=== PATIENT | female | born 1955 | race Caucasian/White ===

== ENCOUNTER 2021-09-09 12:14 | Inpatient (IN) ==
[2021-09-09 13:21] LABS: Basophils # (auto) 0.01 K/uL (0-0.2); Basophils % (auto) 0.1 %; Hematocrit (blood only) 43.1 % (37-47); Hemoglobin 15.1 g/dL (12.0-16.0); Immature Granulocytes # (auto) 0.15 K/uL (0.00-0.02); Immature Granulocytes % (auto) 0.9 %; Lymphocytes # (auto) 2.34 K/uL (1.2-3.4); Lymphocytes % (auto) 14.6 %; Mean Corpuscular Hemoglobin 33.1 pg (25-34); Mean Corpuscular Volume 94.5 fL (80-100); Mean Platelet Volume 8.9 fL (7.4-10.4); Monocytes # (auto) 1.32 K/uL (0.11-0.59); Monocytes % (auto) 8.3 %; Neutrophils # (auto) 12.16 K/uL (1.4-6.5); Neutrophils % (auto) 76.1 %; Platelet Count 440 K/uL (130-400); RDW Coefficient of Variation 14.1 % (11.5-14.5); RDW Standard Deviation 48.3 fL (36.4-46.3); Red Blood Count 4.56 M/uL (4.2-5.4); White Blood Count 15.98 K/uL (4.8-10.8)
[2021-09-09 13:47] LABS: Alanine Aminotransferase 29 U/L (12-78); Albumin Level 3.3 gm/dl (3.4-5.0); Aspartate Aminotransferase 13 U/L (15-37); BUN Creatinine Ratio 28.4 (10-20); Blood Urea Nitrogen 14 mg/dl (7-18); Calcium 9.4 mg/dl (8.5-10.1); Carbon Dioxide 27 mmol/L (21-32); Chloride 92 mmol/L (98-107); Creatinine Clr Calc Pharmacy 73.2 ml/min; Est GFR (Non-African American) 100.1 ml/min; Glucose 109 mg/dl (70-99); Potassium 3.4 mmol/L (3.5-5.1); Sodium 127 mmol/L (136-145)
[2021-09-09] MEDS ORDERED: SODIUM CHLORIDE 0.9% 1000ML 1,000 ML IV ONE (13:53)
[2021-09-09] MEDS ORDERED: PROMETHAZINE 12.5 MG/50.5 ML BAG IV STA (13:53)
[2021-09-09] MEDS ORDERED: dexAMETHasone**PF** 10 MG/ML VIAL IV ONE (13:53)
--- NOTE | 2021-09-09 13:56 | Emergency Department Note ---
Impression & Plan Cerebral edema, Nausea, Acute hyponatremia, Abnormal EKG ED Provider Note NAME: DEREK [employer] AGE: 66 SEX: F : 1955 ARRIVES VIA: Ambulance INFORMANT: Patient, ED PROVIDER(S): Sidney Vasquez DO CHIEF COMPLAINT: Nausea HPI: The patient is a 66-year-old female who was recently diagnosed with metastatic lung cancer. She had a lymph node biopsy at [facility] yesterday. 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 She denies having any abdominal pain. She has had no black or bloody bowel movements. She has been noticing severe nausea. She also has noticed headaches. She has been unable to take her normal outpatient medications today because of the nausea. She called her oncologist at [facility] and was advised to go to the emergency department. ROS: See above HPI for pertinent positives & negatives. A total of 10 systems reviewed and were otherwise negative. PAST MEDICAL HISTORY: See Below PAST SURGICAL HISTORY: See Below FAMILY HISTORY: See Below SOCIAL HISTORY: See Below HOME MEDICATIONS: See Below ALLERGIES: See Below VITALS: See Below PHYSICAL EXAMINATION: GENERAL: The patient is awake and alert. She appears uncomfortable. EYES: The conjunctivae are clear. The pupils are round and reactive. EARS, NOSE, MOUTH AND THROAT: The nose is without any evidence of any deformity. Mucous membranes are dry. NECK: The neck is nontender and supple. RESPIRATORY: Normal respiratory effort is noted there is no evidence of wheezing rhonchi or rales CARDIOVASCULAR: Regular rate and rhythm noted there no murmurs rubs or gallops normal S1 normal S2. GASTROINTESTINAL: The abdomen is soft. Abdomen is nontender. MUSCULOSKELETAL/EXTREMITIES: There is no evidence of gross deformity full range of motion is noted in the hips and shoulders. SKIN: There is no obvious evidence of any rash. There are no petechiae, pallor or cyanosis noted. NEUROLOGIC: Patient is awake alert and oriented x3 strength is symmetric patellar reflexes are 2+ bilaterally MEDICAL DECISION MAKING: The patient is a 66-year-old female who presented to the emergency department with nausea symptoms. The patient was recently diagnosed with metastatic cancer. This is felt to be secondary to a lung primary but she had recent biopsy to determine the cause of the primary lesion. She has no metastasis to the brain. She is at the very beginning of this work-up. She was started on steroids because of cerebral edema. The patient presented because of ongoing worsening symptoms which include nausea and decreased p.o. intake. She was treated with IV fluids and IV Decadron in the emergency department. I discussed the patient's laboratory and radiographic studies with her. She was found to have cerebral edema secondary to metastatic disease. She was feeling somewhat improved on reevaluation. I discussed the patient's condition with the on-call [facility] hospitalist. They have agreed to evaluate the patient in the emergency department for further management and disposition. I also discussed the case with the [facility] oncologist. She has not been established with them as of yet. Triage Nursing notes reviewed. Prior medical records reviewed Vital Signs: reviewed and remarkable for elevated blood pressure. Differential diagnosis: Migraine headache, meningitis, sinusitis, CO exposure, ICH, SAH, infection, tumor, headache, sinus thrombosis, arterial dissection, as well as other pathologies. ER treatment provided: See below Diagnostics interpreted by me: ECG: EKG was obtained in the emergency department. My interpretation is normal sinus rhythm at 65 bpm. There is no ectopy. Diffuse ST abnormalities were noted. LVH was suggested by voltage criteria. No previous EKG was available. Cardiac Monitoring: An order was placed for continuous cardiac monitoring. The monitor shows a rate of 73 bpm with sinus rhythm. Laboratory studies: As stated above and show below. Imaging studies: See below Consultation(s): I discussed this case with Julio Genao who is covering for the [facility]. Past Med/Surg History Medical History (Updated 09/09/21 @ 18:41 by Sidney Vasquez DO) Hypertension Lung cancer Migraine SVT (supraventricular tachycardia) Surgical History (Updated 09/09/21 @ 13:55 by Sidney Vasquez DO) H/O lymph node biopsy H/O: hysterectomy Social History Smoking Status: Former smoker Preferred Language: Trinidadian Feels Safe at Home: Yes Allergies Allergies Allergy/AdvReac Type Severity Reaction Status Date / Time shellfish derived Allergy Unknown Unknown Unverified 09/09/21 15:22 Home Meds Home Medications Medication Instructions Recorded Confirmed amlodipine 5 mg tablet (Norvasc) 5 mg PO DAILY 09/09/21 09/09/21 aspirin 25 mg-dipyridamole 200 mg 1 cap PO BID 09/09/21 09/09/21 capsule,ext.release 12 hr multiphase atorvastatin 20 mg tablet (Lipitor) 20 mg PO HS 09/09/21 09/09/21 calcium carbonate-vitamin D3 600 1 cap PO BID 09/09/21 09/09/21 mg calcium-200 unit capsule (Calcium 600 + D(3)) cetirizine 10 mg tablet (Zyrtec) 10 mg PO HS PRN 09/09/21 09/09/21 famotidine 20 mg tablet 20 mg PO QAM 09/09/21 09/09/21 magnesium oxide 250 mg PO HS 09/09/21 09/09/21 potassium chloride 10 mEq 10 meq PO DAILY 09/09/21 09/09/21 capsule,extended release prednisone 20 mg tablet 20 mg PO UD 09/09/21 09/09/21 propranolol 120 mg capsule,24 120 mg PO HS 09/09/21 09/09/21 hr,extended release (Inderal LA) Results & Data (ED) Vital Signs Vital Signs - 24 hr 09/09/21 12:22 09/09/21 13:40 09/09/21 16:22 Temperature 36.3 C L Temperature Source Temporal Artery Scan Pulse Rate 75 Pulse Rate [Apical] 65 74 Pulse Rhythm Regular Pulse Rhythm [Apical] Regular Pulse Strength Normal Pulse Strength [Apical] Normal Respiratory Rate 20 25 H 16 Respiratory Effort / Characteristics Non-Labored Spontaneous Non-Labored Spontaneous Respiratory Depth Normal Normal Respiratory Pattern Regular Regular Blood Pressure 145/93 H Blood Pressure [Right Arm] 191/98 H 136/73 Blood Pressure Mean 110 Blood Pressure Mean [Right Arm] 129 94 Blood Pressure Position Sitting Blood Pressure Position [Right Arm] Semi-fowlers Pulse Oximetry 97 97 97 Oxygen Delivery Method Room Air Room Air Sepsis Recent Fever Within 48 Hours No Sepsis New/Unexplained Change in Mental Status N/A Sepsis Action Taken by Nursing No Action Required 09/09/21 18:22 Temperature Temperature Source Pulse Rate Pulse Rate [Apical] 73 Pulse Rhythm Pulse Rhythm [Apical] Pulse Strength Pulse Strength [Apical] Respiratory Rate 15 Respiratory Effort / Characteristics Respiratory Depth Respiratory Pattern Blood Pressure Blood Pressure [Right Arm] 162/86 H Blood Pressure Mean Blood Pressure Mean [Right Arm] 111 Blood Pressure Position Blood Pressure Position [Right Arm] Pulse Oximetry 93 Oxygen Delivery Method Room Air Sepsis Recent Fever Within 48 Hours Sepsis New/Unexplained Change in Mental Status Sepsis Action Taken by [facility] Medications Current Medication List: was personally reviewed by me Laboratory Data Attestation: I reviewed the patient's lab results. Result diagrams: 09/09/21 13:04 09/09/21 13:04 Lab Results 09/09/21 09/09/21 09/09/21 Range/Units 11:03 13:04 13:04 WBC 15.98 H (4.8-10.8) K/uL RBC 4.56 (4.2-5.4) M/uL Hgb 15.1 (12.0-16.0) g/dL Hct 43.1 (37-47) % MCV 94.5 (80-100) fL MCH 33.1 (25-34) pg MCHC 35.0 (32-36) g/dL RDW Std Deviation 48.3 H (36.4-46.3) fL RDW Coeff of Chinyere 14.1 (11.5-14.5) % Plt Count 440 H (130-400) K/uL MPV 8.9 (7.4-10.4) fL Immature Gran % (Auto) 0.9 % Neut % (Auto) 76.1 % Lymph % (Auto) 14.6 % Garvin % (Auto) 8.3 % Eos % (Auto) 0.0 % Baso % (Auto) 0.1 % Neut # (Auto) 12.16 H (1.4-6.5) K/uL Lymph # (Auto) 2.34 (1.2-3.4) K/uL Garvin # (Auto) 1.32 H (0.11-0.59) K/uL Eos # (Auto) 0.00 (0-0.5) K/uL Baso # (Auto) 0.01 (0-0.2) K/uL Immature Gran # (Auto) 0.15 H (0.00-0.02) K/uL Sodium 127 L (136-145) mmol/L Potassium 3.4 L (3.5-5.1) mmol/L Chloride 92 L (98-107) mmol/L Carbon Dioxide 27 (21-32) mmol/L Anion Gap 8.0 (3-11) BUN 14 (7-18) mg/dl Creatinine 0.49 L (0.6-1.2) mg/dl Est Cr Clr Drug Dosing 73.2 ml/min Est GFR ( Amer) 116.0 ml/min Est GFR (Non-Af Amer) 100.1 ml/min BUN/Creatinine Ratio 28.4 H (10-20) Glucose 109 H (70-99) mg/dl Calcium 9.4 (8.5-10.1) mg/dl Magnesium (1.8-2.4) mg/dl Total Bilirubin 0.5 (0.2-1) mg/dl AST 13 L (15-37) U/L ALT 29 (12-78) U/L Alkaline Phosphatase 58 (45-117) U/L Troponin I < 0.015 (0-0.045) ng/ml Total Protein 7.3 (6.4-8.2) gm/dl Albumin 3.3 L (3.4-5.0) gm/dl Globulin 4.0 (2.5-4.0) gm/dl Albumin/Globulin Ratio 0.8 L (0.9-2) TSH 1.870 (0.300-4.500) uIu/ml Urine Color Urine Appearance (Clear) Urine pH (4.5-7.5) Ur Specific [place] (1.000-1.030) Urine Protein (Negative) Urine Glucose (UA) (Negative) Urine Ketones (Negative) Urine Blood (Negative) Urine Nitrite (Negative) Urine Bilirubin (Negative) Urine Urobilinogen (Negative) Ur Leukocyte Esterase (Negative) SARS-CoV-2, RNA, NAAT NEGATIVE (NEGATIVE) 09/09/21 09/09/21 Range/Units 13:04 14:30 WBC (4.8-10.8) K/uL RBC (4.2-5.4) M/uL Hgb (12.0-16.0) g/dL Hct (37-47) % MCV (80-100) fL MCH (25-34) pg MCHC (32-36) g/dL RDW Std Deviation (36.4-46.3) fL RDW Coeff of Chinyere (11.5-14.5) % Plt Count (130-400) K/uL MPV (7.4-10.4) fL Immature Gran % (Auto) % Neut % (Auto) % Lymph % (Auto) % Garvin % (Auto) % Eos % (Auto) % Baso % (Auto) % Neut # (Auto) (1.4-6.5) K/uL Lymph # (Auto) (1.2-3.4) K/uL Garvin # (Auto) (0.11-0.59) K/uL Eos # (Auto) (0-0.5) K/uL Baso # (Auto) (0-0.2) K/uL Immature Gran # (Auto) (0.00-0.02) K/uL Sodium (136-145) mmol/L Potassium (3.5-5.1) mmol/L Chloride (98-107) mmol/L Carbon Dioxide (21-32) mmol/L Anion Gap (3-11) BUN (7-18) mg/dl Creatinine (0.6-1.2) mg/dl Est Cr Clr Drug Dosing ml/min Est GFR ( Amer) ml/min Est GFR (Non-Af Amer) ml/min BUN/Creatinine Ratio (10-20) Glucose (70-99) mg/dl Calcium (8.5-10.1) mg/dl Magnesium 2.2 (1.8-2.4) mg/dl Total Bilirubin (0.2-1) mg/dl AST (15-37) U/L ALT (12-78) U/L Alkaline Phosphatase (45-117) U/L Troponin I (0-0.045) ng/ml Total Protein (6.4-8.2) gm/dl Albumin (3.4-5.0) gm/dl Globulin (2.5-4.0) gm/dl Albumin/Globulin Ratio (0.9-2) TSH (0.300-4.500) uIu/ml Urine Color Yellow Urine Appearance Clear (Clear) Urine pH 8.0 H (4.5-7.5) Ur Specific [place] 1.011 (1.000-1.030) Urine Protein Negative (Negative) Urine Glucose (UA) Negative (Negative) Urine Ketones Negative (Negative) Urine Blood Negative (Negative) Urine Nitrite Negative (Negative) Urine Bilirubin Negative (Negative) Urine Urobilinogen Negative (Negative) Ur Leukocyte Esterase Negative (Negative) SARS-CoV-2, RNA, NAAT (NEGATIVE) Administered Medications Acetaminophen (Ofirmev) 1,000 mg in 100 mls @ 400 mls/hr IV Q8H SAUL Stop: 09/12/21 18:14 Last Admin: 09/09/21 18:21 Dose: 400 mls/hr Documented by: [id number] Discontinued Medications Dexamethasone Sodium Phosphate (DexamethasonePf 10 Mg/Ml Vial) 10 mg IV NOW ONE Stop: 09/09/21 13:54 Last Admin: 09/09/21 14:09 Dose: 10 mg Documented by: [id number] Sodium Chloride (Nss 1000ml) 1,000 mls @ 999 mls/hr IV .Q1H1M ONE Stop: 09/09/21 14:53 Last Infusion: 09/09/21 15:12 Dose: 0 mls/hr Documented by: [id number] Admin: 09/09/21 14:09 Dose: 999 mls/hr Documented by: [id number] Promethazine HCl (Phenergan) 12.5 mg in 50.5 mls @ 202 mls/hr IV NOW STA Stop: 09/09/21 14:07 Last Infusion: 09/09/21 15:12 Dose: 0 mls/hr Documented by: [id number] Admin: 09/09/21 14:09 Dose: 202 mls/hr Documented by: [id number] Imaging Data Radiologist's Impression: Chest X-Ray 09/09/21 12:56 XR chest 1V portable CLINICAL HISTORY: weakness. Evaluate cardiac pulmonary status COMPARISON STUDY: None TECHNIQUE: 1 view of the chest FINDINGS: Single frontal view of the chest demonstrates the cardiomediastinal silhouette to be within normal limits. There is a large left upper lobe noncalcified pulmonary nodule measuring approximately 4.1 x 3.6 cm. The findings are most characteristic of lung cancer. The lungs are clear of alveolar opacities. There is no evidence for pleural effusion. There is no evidence for vascular congestion. There is no acute osseous pathology. IMPRESSION: Large noncalcified pulmonary nodule within the left upper lobe most characteristic of lung cancer. CT of the chest with contrast could be obtained for further evaluation of potential metastatic lymphadenopathy. ACT 112: Negative or not required by law. Electronically signed by: Eusebio Almanzar M.D. 09/09/2021 2:[address] 09/09/21 13:53 CT head/brain wo con CLINICAL HISTORY: 66 years-old Female with FISCHER, recently diagnosis w brain ,mets. Acute headache with reported history of intracranial metastatic disease TECHNIQUE: Multiple axial CT images of the head were obtained without contrast. A dose lowering technique was utilized adhering to the principles of ALARA. CT DOSE: 638.56 mGycm COMPARISON: None. FINDINGS: 2.8 x 2.6 cm mass is noted within the periventricular distribution of the right cerebral hemisphere tracking along and encasing the atria and temporal horns of the right lateral ventricle and choroid plexus. This may also partially include the corpus callosum. There is a 1.3 x 1.5 cm mass involving the periventricular left frontal lobe and corpus callosum.. Prominent amount of vasogenic edema surrounds these lesions, right greater than left with associated gyral expansion. There is no midline shift or definite intracranial hemorrhage identified. Mildly motion degraded exam. Age-related involutional changes with s uggest chronic microvascular ischemic disease. Cerebral vascular calcifications. The calvarium is intact. The paranasal sinuses, mastoid air cells, and middle ear cavities are clear. IMPRESSION: 1. There are least two intra-axial masses measuring up to 2.8 cm as described above compatible with the patient's history of known intracranial metastatic disease which demonstrate considerable amount of surrounding vasogenic edema resulting in areas of gyral expansion and sulcal effacement. Findings should be correlated with prior imaging. 2. No definite acute intracranial hemorrhage, midline shift or hydrocephalus. ACT 112: Negative or not required by law. The above report was generated using voice recognition software. It may contain grammatical, syntax or spelling errors. Electronically signed by: Leonel Moreira M.D. 09/09/2021 3:47 PM Discharge Plan Visit Data Chief Complaint: Weakness Stated Complaint: WEAKNESS, ILLNESS ED Provider: Sidney Vasquez Discharge Problem: Cerebral edema, Nausea, Acute hyponatremia, Abnormal EKG Patient Disposition: Being Evaluated by Hospitalist Forms Stand Alone Forms: [employer] Prescriptions Prescriptions: No Action aspirin-dipyridamole [Aggrenox] 25-200 mg Capsule, Er Multiphase 12 Hr 1 cap PO BID RF: 0 potassium chloride 10 mEq Capsule, Extended Release 10 meq PO DAILY RF: 0 atorvastatin [Lipitor] 20 mg Tablet 20 mg PO HS RF: 0 cetirizine [Zyrtec] 10 mg Tablet 10 mg PO HS PRN (Reason: Allergy Symptoms) RF: 0 amlodipine [Norvasc] 5 mg Tablet 5 mg PO DAILY RF: 0 famotidine 20 mg tablet 20 mg PO QAM RF: 0 propranolol [Inderal LA] 120 mg Capsule,Extended Release 24 Hr 120 mg PO HS RF: 0 magnesium oxide 250 mg magnesium Tablet 250 mg PO HS RF: 0 Calcium 600 + D(3) 600 mg calcium- 200 unit Capsule 1 cap PO BID RF: 0 prednisone 20 mg tablet 20 mg PO UD RF: 0 Referrals Referrals: PCP,NO [Primary Care Provider] -
[2021-09-09 13:58] LABS: Albumin Globulin Ratio 0.8 (0.9-2); Alkaline Phosphatase 58 U/L (45-117); Bilirubin,Total 0.5 mg/dl (0.2-1); Total Protein 7.3 gm/dl (6.4-8.2); Troponin I < 0.015 ng/ml (0-0.045)
--- NOTE | 2021-09-09 14:09 | XRay Report ---
XR chest 1V portable CLINICAL HISTORY: weakness. Evaluate cardiac pulmonary status COMPARISON STUDY: None TECHNIQUE: 1 view of the chest FINDINGS: Single frontal view of the chest demonstrates the cardiomediastinal silhouette to be within normal li mits. There is a large left upper lobe noncalcified pulmonary nodule measuring approximately 4.1 x 3. 6 cm. The findings are most characteristic of lung cancer. The lungs are clear of alveolar opacities. There is no evidence for pleural effusion. There is no evidence for vascular congestion. There is no acute osseous pathology. IMPRESSION: Large noncalcified pulmonary nodule within the left upper lobe most characteristic of brady g cancer. CT of the chest with contrast could be obtained for further evaluation of potential metasta tic lymphadenopathy. ACT 112: Negative or not required by law. Electronically signed by: Eusebio Almanzar M.D. 09/09/2021 2:07 PM
[2021-09-09 14:56] LABS: Appearance Urine Clear (Clear); Bilirubin Urine Negative (Negative); Blood Urine Negative (Negative); Color Urine Yellow; Glucose Urine UA Negative (Negative); Ketones Urine Negative (Negative); Leukocyte Esterase Urine Negative (Negative); Nitrite Urine Negative (Negative); Protein Urine Negative (Negative); Specific Gravity Urine 1.011 (1.000-1.030); Urobilinogen Urine Negative (Negative)
--- NOTE | 2021-09-09 15:48 | CT Scan Report ---
CT head/brain wo con CLINICAL HISTORY: 66 years-old Female with FISCHER, recently diagnosis w brain ,mets. Acute headache with reported history of intracranial metastatic disease TECHNIQUE: Multiple axial CT images of the head were obtained without contrast. A dose lowering tech nique was utilized adhering to the principles of ALARA. CT DOSE: 638.56 mGycm COMPARISON: None. FINDINGS: 2.8 x 2.6 cm mass is noted within the periventricular distribution of the right cerebral he misphere tracking along and encasing the atria and temporal horns of the right lateral ventricle and choroid plexus. This may also partially include the corpus callosum. There is a 1.3 x 1.5 cm mass inv olving the periventricular left frontal lobe and corpus callosum.. Prominent amount of vasogenic waqar a surrounds these lesions, right greater than left with associated gyral expansion. There is no midli ne shift or definite intracranial hemorrhage identified. Mildly motion degraded exam. Age-related inv olutional changes with suggest chronic microvascular ischemic disease. Cerebral vascular calcificatio ns. The calvarium is intact. The paranasal sinuses, mastoid air cells, and middle ear cavities are clear . IMPRESSION: 1. There are least two intra-axial masses measuring up to 2.8 cm as described above compatible with t he patient's history of known intracranial metastatic disease which demonstrate considerable amount o f surrounding vasogenic edema resulting in areas of gyral expansion and sulcal effacement. Findings s hould be correlated with prior imaging. 2. No definite acute intracranial hemorrhage, midline shift or hydrocephalus. ACT 112: Negative or not required by law. The above report was generated using voice recognition software. It may contain grammatical, syntax o r spelling errors. Electronically signed by: Leonel Moreira M.D. 09/09/2021 3:47 PM
--- NOTE | 2021-09-09 17:57 | History & Physical Report ---
Date of Service September 09, 2021 Assessment & Plan (1) Cerebral edema: (2) Nausea: (3) Lung cancer metastatic to brain: Plan: This is a 66yo F with a PMH of lung cancer with mets to brain, history of SVT, HTN, HLD, lower back pain presenting with nausea, inability for PO intake and headaches. Was recently diagnosed with metastatic lung cancer and had cervical lymph node biopsy performed at [place] yesterday with plans for lung biopsy Was recently started on p.o. prednisone due to multiple mets to the brain but is not been able to tolerate over the past few days due to nausea and headaches CT head with at least two intra-axial masses measuring up to 2.8 cm as described above compatible with the patient's history of known intracranial metastatic disease which demonstrate considerable amount of surrounding vasogenic edema resulting in areas of gyral expansion and sulcal effacement. No definite acute intracranial hemorrhage, midline shift or hydrocephalus Following with Dr. Osborne of neurosurgery at [place]. Once lung biopsy comes back, plan for WBRT and systemic therapy Discussed with Dr. Kenny of med onc, who does not feel patient needs to be transferred right now Starting IV Decadron 4mg Q6H, consulting rad onc. [place] with Dr. Osborne of [facility] neurosurgery (4) HTN (hypertension): Plan: Continue Norvasc, propranolol (5) Hyponatremia: (6) Hypokalemia: Plan: Na of 127, K 3.4 in setting of poor PO intake Starting IV fluids, daily BMP, clear liquids (7) SVT (supraventricular tachycardia): Plan: Continue propranolol DVT Ppx: SQ heparin Code status: FULL PCP: Brian Dispo: Admitted to PCU Patient seen in collaboration with Dr. Alex. Please see addendum. History of Present Illness Primary Care Provider: NO PCP This is a 66yo F with a PMH of lung cancer with mets to brain, history of SVT, HTN, HLD, lower back pain presenting with nausea and headache. Was recently diagnosed with metastatic lung cancer and had cervical lymph node biopsy performed at [place] yesterday with plans for lung biopsy. Was recently started on p.o. prednisone due to multiple mets to the brain but is not been able to tolerate over the past few days due to nausea and headaches. Has also not been able to take other home meds over the past few days due to nausea. Has been able to tolerate some liquids but very limited p.o. intake. No fever or chills. No abdominal pain. No black or bloody bowel movements. No chest pain, shortness of breath, dysuria, diarrhea constipation. Per outpatient records, patient was discussed at multidisciplinary neuro oncology tumor board in [place] today. Patient is following with Dr. Osborne. Once lung biopsy comes back, plan for WBRT and systemic therapy. Patient called neurosurgery earlier today due to feeling poorly and was directed to [place] ED for hydration. Allergies Allergy/AdvReac Type Severity Reaction Status Date / Time shellfish derived Allergy Unknown Unknown Unverified 09/09/21 15:22 Home Medications Medication Instructions Recorded Confirmed Type amlodipine 5 mg tablet (Norvasc) 5 mg PO DAILY 09/09/21 09/09/21 History aspirin 25 mg-dipyridamole 200 mg 1 cap PO BID 09/09/21 09/09/21 History capsule,ext.release 12 hr multiphase atorvastatin 20 mg tablet (Lipitor) 20 mg PO HS 09/09/21 09/09/21 History calcium carbonate-vitamin D3 600 1 cap PO BID 09/09/21 09/09/21 History mg calcium-200 unit capsule (Calcium 600 + D(3)) cetirizine 10 mg tablet (Zyrtec) 10 mg PO HS PRN 09/09/21 09/09/21 History famotidine 20 mg tablet 20 mg PO QAM 09/09/21 09/09/21 History magnesium oxide 250 mg PO HS 09/09/21 09/09/21 History potassium chloride 10 mEq 10 meq PO DAILY 09/09/21 09/09/21 History capsule,extended release prednisone 20 mg tablet 20 mg PO UD 09/09/21 09/09/21 History propranolol 120 mg capsule,24 120 mg PO HS 09/09/21 09/09/21 History hr,extended release (Inderal LA) Past Med/Surg History Medical History (Updated 09/09/21 @ 22:00 by Anne-Marie Genao PA-C) HTN (hypertension) Hypertension Lung cancer Migraine SVT (supraventricular tachycardia) Surgical History H/O lymph node biopsy H/O: hysterectomy Family History Other Cancer Hypertension Social History Smoking Status: Former smoker Preferred Language: Welsh Feels Safe at Home: Yes Review of Systems Review of Systems: At least ten systems reviewed and negative except as noted in the HPI. Physical Exam Physical Exam: Please see Dr. Alex's addendum for physical exam. Results & Data Results & Data ([facility]) Vital Signs (Past 12 Hours) Vital Signs Temp Pulse Pulse Resp BP BP Pulse Ox 09/09/21 16:22 74 16 136/73 97 09/09/21 13:40 65 25 H 191/98 H 97 09/09/21 12:22 36.3 C L 75 20 145/93 H 97 Laboratory Results Short CBC 09/09/21 Range/Units 13:04 WBC 15.98 H (4.8-10.8) K/uL Hgb 15.1 (12.0-16.0) g/dL Hct 43.1 (37-47) % Plt Count 440 H (130-400) K/uL BMP 09/09/21 13:04 Sodium 127 L Potassium 3.4 L Chloride 92 L Carbon Dioxide 27 BUN 14 Creatinine 0.49 L Glucose 109 H Calcium 9.4 Cardiac Enzymes 09/09/21 Range/Units 13:04 Troponin I < 0.015 (0-0.045) ng/ml Liver Function 09/09/21 Range/Units 13:04 Total Bilirubin 0.5 (0.2-1) mg/dl AST 13 L (15-37) U/L ALT 29 (12-78) U/L Alkaline Phosphatase 58 (45-117) U/L Albumin 3.3 L (3.4-5.0) gm/dl Urine 09/09/21 Range/Units 14:30 Urine Color Yellow Urine Appearance Clear (Clear) Urine pH 8.0 H (4.5-7.5) Ur Specific Cisco 1.011 (1.000-1.030) Urine Protein Negative (Negative) Urine Glucose (UA) Negative (Negative) Diagnostic Findings Chest X-Ray 09/09/21 12:56 XR chest 1V portable CLINICAL HISTORY: weakness. Evaluate cardiac pulmonary status COMPARISON STUDY: None TECHNIQUE: 1 view of the chest FINDINGS: Single frontal view of the chest demonstrates the cardiomediastinal silhouette to be within normal limits. There is a large left upper lobe noncalcified pulmonary nodule measuring approximately 4.1 x 3.6 cm. The findings are most characteristic of lung cancer. The lungs are clear of alveolar opacities. There is no evidence for pleural effusion. There is no evidence for vascular congestion. There is no acute osseous pathology. IMPRESSION: Large noncalcified pulmonary nodule within the left upper lobe most characteristic of lung cancer. CT of the chest with contrast could be obtained for further evaluation of potential metastatic lymphadenopathy. ACT 112: Negative or not required by law. Electronically signed by: Eusebio Almanzar M.D. 09/09/2021 2:[address] 09/09/21 13:53 CT head/brain wo con CLINICAL HISTORY: 66 years-old Female with FISCHER, recently diagnosis w brain ,mets. Acute headache with reported history of intracranial metastatic disease TECHNIQUE: Multiple axial CT images of the head were obtained without contrast. A dose lowering technique was utilized adhering to the principles of ALARA. CT DOSE: 638.56 mGycm COMPARISON: None. FINDINGS: 2.8 x 2.6 cm mass is noted within the periventricular distribution of the right cerebral hemisphere tracking along and encasing the atria and temporal horns of the right lateral ventricle and choroid plexus. This may also partially include the corpus callosum. There is a 1.3 x 1.5 cm mass involving the periventricular left frontal lobe and corpus callosum.. Prominent amount of vasogenic edema surrounds these lesions, right greater than left with associated gyral expansion. There is no midline shift or definite intracranial hemorrhage identified. Mildly motion degraded exam. Age-related involutional changes with suggest chronic microvascular ischemic disease. Cerebral vascular calcifications. The calvarium is intact. The paranasal sinuses, mastoid air cells, and middle ear cavities are clear. IMPRESSION: 1. There are least two intra-axial masses measuring up to 2.8 cm as described above compatible with the patient's history of known intracranial metastatic disease which demonstrate considerable amount of surrounding vasogenic edema resulting in areas of gyral expansion and sulcal effacement. Findings should be correlated with prior imaging. 2. No definite acute intracranial hemorrhage, midline shift or hydrocephalus. ACT 112: Negative or not required by law. The above report was generated using voice recognition software. It may contain grammatical, syntax or spelling errors. Electronically signed by: Leonel Moreira M.D. 09/09/2021 3:47 PM Supervising Physician Co-Signing Physician Notes Pt is a 66y/o F with recent hx of Lung Ca mets to the brain, HTN, HLD, Chronic back pain, SVT admitted for persistent Nausea with worsening generalized weakness. Exam: In acute distress and cachetic Lungs: CTA, no wheezing Cardiac: Normal S1/S2, no murmur Abd: ND, Soft, NT MSK: no LE edema Psych: AAOx3 A/p: HypoNa+: -2/2 decreased PO intake and dehydration -will start the pt on D5NS 60 cc/hr ---- BMP q4hrs -Zofran for nausea -replete K+ Nausea with brain mets: -CT head: There are least two intra-axial masses measuring up to 2.8 cm as described above compatible with the patient's history of known intracranial metastatic disease which demonstrate considerable amount of surrounding vasogenic edema resulting in areas of gyral expansion and sulcal effacement -Spoke to Oncology: Decadron 4mg IV q6hr, consult Radiation oncology Generalized weakness: PT/OT Agree with A/P by Anne-Marie Genao PA-C
[2021-09-09] MEDS ORDERED: ACETAMINOPHEN 1,000 MG/100 ML VIAL IV SCH (18:15)
[2021-09-09] MEDS ORDERED: POTASSIUM CHLORIDE 20 MEQ in D5W AND NSS 1,000 ML IV SCH (18:15)
[2021-09-09] MEDS: dexAMETHasone 4 MG in SYRINGE 0 ML IV SCH (20:37)
[2021-09-09] MEDS ORDERED: CETIRIZINE HCL 10 MG TABLET PO PRN (22:06)
[2021-09-09] MEDS ORDERED: PROMETHAZINE HCL 6.25 MG in SODIUM CHLORIDE 0.9% 50 ML IV PRN (22:39)
[2021-09-09] MEDS ORDERED: POLYETHYLENE (MIRALAX) 17 GM PACK PO PRN (22:39)
[2021-09-09] MEDS ORDERED: ONDANSETRON INJ 2 MG/ML 2 ML VIAL IV PRN (22:39)
[2021-09-09] MEDS ORDERED: oxyCODONE HCL IR 5 MG TAB (IMMEDIATE RELEASE) PO PRN (23:23)
[2021-09-09 23:45] LABS: BUN Creatinine Ratio 22.7 (10-20); Calcium 8.7 mg/dl (8.5-10.1); Creatinine Clr Calc Pharmacy 72.3 ml/min; Est GFR (African American) 117.6 ml/min; Est GFR (Non-African American) 101.5 ml/min
[2021-09-10] MEDS: dexAMETHasone 4 MG in SYRINGE 0 ML IV SCH ×4 (02:17→17:24)
[2021-09-10] MEDS: ACETAMINOPHEN 65 ML IV SCH ×3 (03:42→17:24)
[2021-09-10 07:07] LABS: Hematocrit (blood only) 39.4 % (37-47); Hemoglobin 13.6 g/dL (12.0-16.0); Mean Corpuscular Hgb Conc 34.5 g/dL (32-36); Mean Corpuscular Volume 95.6 fL (80-100); Platelet Count 409 K/uL (130-400); RDW Coefficient of Variation 14.5 % (11.5-14.5); RDW Standard Deviation 50.6 fL (36.4-46.3); Red Blood Count 4.12 M/uL (4.2-5.4); White Blood Count 11.57 K/uL (4.8-10.8)
[2021-09-10 07:40] LABS: BUN Creatinine Ratio 25.6 (10-20); Creatinine Clr Calc Pharmacy 75.6 ml/min; Est GFR (African American) 119.3 ml/min; Magnesium 2.3 mg/dl (1.8-2.4); Potassium 4.1 mmol/L (3.5-5.1)
[2021-09-10] MEDS: amLODIPine BESYLATE 5 MG TAB PO SCH (07:57)
[2021-09-10] MEDS: POTASSIUM CHLORIDE 10 MEQ TABCR PO SCH (07:57)
[2021-09-10] MEDS: FAMOTIDINE 20 MG TAB PO SCH (07:58)
[2021-09-10] MEDS: CALCIUM 600MG + VIT D 400 IU TAB PO SCH ×2 (07:58→20:52)
[2021-09-10] MEDS: HEPARIN SOD 5,000 UNIT/0.5 ML VIAL SQ SCH ×2 (07:59→20:47)
--- NOTE | 2021-09-10 10:44 | Radiation OncologyConsultation ---
Date of Consultation September 10, 2021 Assessment & Plan (1) Lung cancer metastatic to brain: Assessment: 66-year-old female with a smoking history who was found to have a left upper lobe lung mass and left lung pneumonia and ultimately was found to have 2 metastatic brain lesions. She was in the process of work-up with a biopsy of a left supraclavicular node yesterday and was to be scheduled for pulmonary evaluation and lung biopsy. She developed some nausea after starting Decadron and was admitted for further evaluation. Treatment Options: 1. Continued dexamethasone if tolerated by the patient. 2. Palliative radiation to the 2 brain lesions. 3. SBRT versus whole brain radiation. 4. Pulmonary evaluation with lung primary biopsy. 5. Medical oncology evaluation for consideration of systemic therapy. Recommendations: Recommended consideration of stereotactic treatment to the 2 brain lesions. If she is not a candidate for SBRT would proceed with whole brain radiation. Plan: 1. CT simulation with IV contrast and immobilization. 2. MRI fusion dated 08/29/2021 for treatment planning purposes. 3. Ordination of treatment with Dr. Kwesi Kenny 4. Evaluation by pulmonary for lung tissue verification as recommended by Dr. Kenny. 5. PET CT scan for completion staging work-up as recommended by Dr. Kenny. Rationale/Explanation of Treatment: Radiographically this patient has a probable lung primary with metastatic disease to mediastinum and left supraclavicular node. Pathology of this node is pending. Brain MRI shows shown to primary lesions in lung CT scan confirmed a 4.0 x 3.9 x 4.6 cm left upper lobe mass consistent with a primary lesion. There was evidence of mediastinal adenopathy. I spoken with Dr. Kwesi Kenny who will be seeing this patient upon discharge for evaluation and systemic treatment recommendation. It I suggested palliative radiation. The options are whole brain radiation or preferably SBRT. Schedule the patient for a CT simulation with IV contrast next Wednesday. We will then fuse the scan with the MRI and proceed with treatment planning. If the patient is a candidate for SBRT we will proceed with a course of 5 fractions. If she is ultimately not a candidate for SBRT we will proceed with a course of whole brain palliative radiation consisting of [address] Kenny will arrange for the patient to be seen by pulmonary if additional primary lung tissue is required and will order any additional staging procedures necessary such as PET CT scan. We will coordinate treatment to the brain lesions with Dr. Kenny. History of Present Illness Reason for Consultation: Evaluate role of radiation in this patient with newly diagnosed probable lung cancer with brain metastasis. Attending Physician: Sarita Sethi MD History of Present Illness Ms. Almeida is a 66-year-old female stop smoking in early August. She was having respiratory symptoms and complaint of headaches which unfortunately did not improve. She was evaluated with a CT scan of the chest abdomen and pelvis and MRI of the brain. 08/29/2021. Patient undergoes MRI of the brain with and without contrast this revealed a heterogeneous, moderately enhancing mass lesion seen involving the right peritrigonal region and isthmus/splenium of the corpus callosum left of midline. They measured 2.9 x 2.7 cm and 1.8 x 1.3 cm. The lesions involve the ependymal surface of the lateral ventricle and the right peritrigonal lesion appears to exophytically project into the ventricle itself and involve the choroid plexus. A dural based enhancing lesion is noted along the planum sphenoid alley with extension along the anterior diaphragm sellae and suggestion of a dural tail measuring up to 12 mm consistent with a meningioma. 09/01/2021. CT scan of the chest abdomen and pelvis with IV and oral contrast performed. In the lungs a 4.0 x 3.9 x 4.6 cm left upper lobe mass was identified consistent with a primary lung neoplasm. An additional 2.4 cm spiculated mass was noted at the superior left lower lobe. A 6 mm worrisome nodule in the superior left lower lobe abutting the left fissure presumed metastatic. There was moderate emphysema. A heterogeneous/metastatic lymph node was noted at the AP window measuring 1.7 x 1.1 cm and a probable left supraclavicular metastatic lymph node measuring 1.0 cm. In the abdomen and pelvis a 5 mm indistinct hypodensity was noted in the anterolateral left liver. There was irregular thickening at the gastric antrum/pylorus concerning for potential ulcer. No abnormal pelvic adenopathy or abdominal adenopathy. No evidence of bony metastatic disease. 09/03/2021. Patient is seen by Dr. Osborne (neurologic surgery) he reviewed the MRI and CT scan. He recommended dexamethasone taper starting at 10 mg twice suellen ly and tapering to 4 mg twice daily. He also reviewed the case with Dr. Stevenson and Dr. Mustafa. He stated they would present this case at their tumor board for further assessment. He spoke with Dr. Kwesi Kenny (oncology/hematology) and arranged for the patient to be seen by radiation oncology. 09/08/2021. Patient undergoes ultrasound-guided percutaneous biopsy of the left cervical/supraclavicular lymph node. Pathology is pending. 09/09/2021. Patient stated she had difficulty tolerating the Decadron as prescribed developed some nausea. She contacted her oncologist at [facility] who advised her to go to the emergency department. He was treated with IV fluids and IV Decadron and symptoms improved. They discussed the case with the on-call [facility] hospitalist and the patient was admitted. Noncontrast CT of the head was performed that reconfirmed a 2.8 x 2.6 cm mass in the periventricular distribution of the right cerebral hemisphere pacing the atria and temporal horns of the right lateral ventricle and choroid plexus partially including the corpus callosum. A 1.3 x 1.5 cm mass involves the periventricular left frontal lobe and corpus callosum. Prominent vasogenic edema surrounding these lesions right greater than left with no midline shift. 09/10/2021. Patient seen in referral by radiation oncology. This chart was completed in part utilizing goviral Speech Voice Recognition software. Grammatical errors, random word insertions, pronoun errors and incomplete sentences are occasional consequence of this system due to software limitations, ambient noise and hardware issues. Any formal questions or concerns about the content, text or information contained within the body of this dictation should be directly addressed to the provider for clarification. Epi Elkins MD Department of Radiation Oncology [facility] Angel Carney [facility] Allergies Allergy/AdvReac Type Severity Reaction Status Date / Time shellfish derived Allergy Unknown Unknown Unverified 09/09/21 15:22 Home Medications Medication Instructions Recorded Confirmed Type amlodipine 5 mg tablet (Norvasc) 5 mg PO DAILY 09/09/21 09/09/21 History aspirin 25 mg-dipyridamole 200 mg 1 cap PO BID 09/09/21 09/09/21 History capsule,ext.release 12 hr multiphase atorvastatin 20 mg tablet (Lipitor) 20 mg PO HS 09/09/21 09/09/21 History calcium carbonate-vitamin D3 600 1 cap PO BID 09/09/21 09/09/21 History mg calcium-200 unit capsule (Calcium 600 + D(3)) cetirizine 10 mg tablet (Zyrtec) 10 mg PO HS PRN 09/09/21 09/09/21 History famotidine 20 mg tablet 20 mg PO QAM 09/09/21 09/09/21 History magnesium oxide 250 mg PO HS 09/09/21 09/09/21 History potassium chloride 10 mEq 10 meq PO DAILY 09/09/21 09/09/21 History capsule,extended release prednisone 20 mg tablet 20 mg PO UD 09/09/21 09/09/21 History propranolol 120 mg capsule,24 120 mg PO HS 09/09/21 09/09/21 History hr,extended release (Inderal LA) Patient History Medical History (Updated 09/09/21 @ 22:00 by Anne-Marie Genao PA-C) HTN (hypertension) Hypertension Lung cancer Migraine SVT (supraventricular tachycardia) Surgical History H/O lymph node biopsy H/O: hysterectomy Family History Other Cancer Hypertension Social History Smoking Status: Former smoker Second Hand Exposure: Yes; Do You Dip or Chew Tobacco: No; Tobacco Cessation Education Requested by Patient: No Hx Alcohol Use: Yes Alcohol type: hard liquor Hx Substance Use: No Preferred Language: Citizen Of [place] Communication Ability: Effective Lead Generation Specialist Required: No Beliefs That Will Affect Care: None Current Living Situation: Alone Other Information That Helps Us Care for You: No Feels Safe at Home: Yes Safety Concerns: Feels Safe At This Time Physical Exam Constitutional: The patient is awake and alert. She is in mild discomfort from a very mild headache. Eyes: Sclera white conjunctive are pink. ENMT: Oral cavity: No mucositis or abnormalities appreciated. Neck: No palpable upper cervical or supraclavicular adenopathy. The left supraclavicular node recently biopsied was not easily palpated tender due to the recent biopsy performed yesterday. Respiratory: There is normal air movement which is basically clear to auscultation without wheezes. Cardiovascular: Heart: Regular rhythm with no murmurs or gallops. Gastrointestinal (Abdomen): Abdomen is soft nontender no masses or organom egaly. Musculoskeletal: There is full range of motion of all extremities with no edema. Skin: In: No rashes noted. Neurologic: Patient is alert and oriented. There are no cranial nerve deficits appreciated. There is no obvious cerebellar, sensory deficits. Results (Rad Onc) Laboratory Results: were reviewed and pertinent findings noted in HPI Pathology Results: were reviewed and pertinent findings noted in HPI Imaging Studies: were review and pertinent findings noted below and were reviewed and pertinent findings noted in HPI CT head/brain wo con CLINICAL HISTORY: 66 years-old Female with FISCHER, recently diagnosis w brain ,mets. Acute headache with reported history of intracranial metastatic disease TECHNIQUE: Multiple axial CT images of the head were obtained without contrast. A dose lowering technique was utilized adhering to the principles of ALARA. CT DOSE: 638.56 mGycm COMPARISON: None. FINDINGS: 2.8 x 2.6 cm mass is noted within the periventricular distribution of the right cerebral hemisphere tracking along and encasing the atria and temporal horns of the right lateral ventricle and choroid plexus. This may also partially include the corpus callosum. There is a 1.3 x 1.5 cm mass involving the periventricular left frontal lobe and corpus callosum.. Prominent amount of vasogenic edema surrounds these lesions, right greater than left with associated gyral expansion. There is no midline shift or definite intracranial hemorrhage identified. Mildly motion degraded exam. Age-related involutional changes with suggest chronic microvascular ischemic disease. Cerebral vascular calcifications. The calvarium is intact. The paranasal sinuses, mastoid air cells, and middle ear cavities are clear. IMPRESSION: 1. There are least two intra-axial masses measuring up to 2.8 cm as described above compatible with the patient's history of known intracranial metastatic disease which demonstrate considerable amount of surrounding vasogenic edema resulting in areas of gyral expansion and sulcal effacement. Findings should be correlated with prior imaging. 2. No definite acute intracranial hemorrhage, midline shift or hydrocephalus. Time Spent Attending This documentation has been prepared in full by Dr. Elkins. I have personally reviewed the services described and have reviewed the documentation to ensure its accuracy. I spent 20 minutes minutes with direct face to face interaction with the patient which included obtaining clinical information, recommending a plan of action and answering questions. Spent 20 minutes reviewed chart and scans with radiology and discussion of the case with Dr. Kenny and preparation of this document. JULISSA
--- NOTE | 2021-09-10 16:48 | Hospitalist Progress Note ---
Date of Service September 10, 2021 Assessment & Plan (1) Cerebral edema: Plan: Secondary to brain metastasis from primary lung with vasogenic edema She has been on intravenous dexamethasone as per instruction from neurosurgery in [place] and also local oncologist Appreciate radiation oncology input and recommendation-likely to have mapping and radiation therapy starting sometime next week Appreciate input from oncologist who will evaluate the patient sooner for p ossible systemic chemotherapy Patient has been feeling much better since admission Likely be discharged tomorrow (2) Nausea: Plan: Symptomatic treatment (3) Lung cancer metastatic to brain: Plan: This is a 66yo F with a PMH of lung cancer with mets to brain, history of SVT, HTN, HLD, lower back pain presenting with nausea, inability for PO intake and headaches. Was recently diagnosed with metastatic lung cancer and had cervical lymph node biopsy performed at [place] yesterday with plans for lung biopsy Was recently started on p.o. prednisone due to multiple mets to the brain but is not been able to tolerate over the past few days due to nausea and headaches CT head with at least two intra-axial masses measuring up to 2.8 cm as described above compatible with the patient's history of known intracranial metastatic disease which demonstrate considerable amount of surrounding vasogenic edema resulting in areas of gyral expansion and sulcal effacement. No definite acute intracranial hemorrhage, midline shift or hydrocephalus Following with Dr. Osborne of neurosurgery at [place]. Once lung biopsy comes back, plan for WBRT and systemic therapy Discussed with Dr. Kenny of med onc, who does not feel patient needs to be transferred right now Starting IV Decadron 4mg Q6H, consulting rad onc. Touching base with Dr. Osborne of [facility] neurosurgery (4) HTN (hypertension): Plan: Continue Norvasc, propranolol Remains on the upper side at 160/73 (5) Hyponatremia: Plan: Secondary to component of SIADH Sodium level has been improving (6) Hypokalemia: Plan: Na of 127, K 3.4 in setting of poor PO intake Starting IV fluids, daily BMP, clear liquids Potassium level has been normalized (7) SVT (supraventricular tachycardia): Plan: Continue propranolol DVT Ppx: SQ heparin Code status: FULL PCP: Brian Dispo: Admitted to PCU Admission and Anticipated Discharge Date Admission Date: September 09, 2021 Subjective 09/10/2021 The patient was seen and examined in telemetry unit She complains to have's minimal pain in the neck and head Her nausea and vomiting have improved Denies any cough and/or shortness of breath or any hemoptysis Clinically better Review of Systems Review of Systems: All systems reviewed and are unremarkable except as noted below Neurologic: Generalized weakness with minimal headache Physical Exam Physical Exam: Lying in bed without any acute distress but looked very depressed Constitutional: + ill appearing and average body habitus Eyes: PERRL, conjunctivae normal, anicteric sclerae ENMT: external ear and nose normal, oropharynx normal Neck: trachea midline, no thyromegaly Respiratory: no respiratory distress and no cough Auscultation: lungs clear to auscultation bilaterally Cardiovascular: Rate/Rhythm: regular rate and regular rhythm; not tachycardic Heart Sounds: normal S1 and normal S2; no murmur Extremities: no edema Gastrointestinal (Abdomen): Inspection/Auscultation: normal bowel sounds; abdomen not distended Percussion/Palpation: abdomen soft; abdomen nontender Musculoskeletal: No acute arthritis in any joint Neurologic: Alert, awake and oriented x3. Generally weak but no focal sensory or no motor deficit appreciated Lymphatic: no cervical or axillary lymphadenopathy Results & Data Results & Data ([facility]) Vital Signs (Past 12 Hours) Vital Signs Temp Pulse Pulse Resp BP Pulse Ox 09/10/21 15:56 36.6 C 62 17 168/73 H 96 09/10/21 15:23 76 09/10/21 11:07 36.7 C 68 18 156/79 H 97 09/10/21 11:00 62 09/10/21 07:05 36.6 C 64 17 171/84 H 95 Laboratory Results Short CBC 09/10/21 Range/Units 06:11 WBC 11.57 H (4.8-10.8) K/uL Hgb 13.6 (12.0-16.0) g/dL Hct 39.4 (37-47) % Plt Count 409 H (130-400) K/uL BMP 09/09/21 09/10/21 22:50 06:11 Sodium 135 L D 132 L Potassium 4.0 D 4.1 Chloride 100 101 Carbon Dioxide 24 25 BUN 11 12 Creatinine 0.47 L 0.45 L Glucose 157 H 144 H Calcium 8.7 9.0 Medications Administered Current Inpatient Medications Amlodipine Besylate (Amlodipine Besylate 5 Mg Tab) 5 mg PO DAILY SAUL Stop: 10/10/21 08:59 Last Admin: 09/10/21 07:57 Dose: 5 mg Documented by: Atorvastatin Calcium (Atorvastatin 20 Mg Tab) 20 mg PO HS SAUL Stop: 10/10/21 20:59 Cetirizine HCl (Cetirizine Hcl 10 Mg Tablet) 10 mg PO HS PRN PRN Reason: Allergy Symptoms Stop: 10/09/21 22:05 Famotidine (Famotidine 20 Mg Tab) 20 mg PO QAM SAUL Stop: 10/10/21 08:59 Last Admin: 09/10/21 07:58 Dose: 20 mg Documented by: Heparin Sodium (Porcine) (Heparin Sod 5,000 Unit/0.5 Ml Vial) 5,000 units SQ Q12 SAUL Stop: 10/10/21 08:59 Last Admin: 09/10/21 07:59 Dose: 5,000 units Documented by: Dexamethasone 4 mg/ Syringe 1 mls @ 1 mls/min IV Q6H SAUL Stop: 10/09/21 18:06 Last Admin: 09/10/21 12:10 Dose: 1 mls/min Documented by: Acetaminophen (Ofirmev) 65 mls @ 260 mls/hr IV Q8H SAUL Stop: 09/13/21 01:59 Last Infusion: 09/10/21 09:44 Dose: Infused Documented by: Promethazine HCl 6.25 mg/ (Sodium Chloride) 50.25 mls @ 201 mls/hr IV Q6H PRN PRN Reason: Nausea And Vomiting Stop: 10/09/21 22:38 Magnesium Oxide (Magnesium Oxide 400 Mg Tab) 400 mg PO HS SAUL Stop: 10/10/21 20:59 Multivitamins/Minerals (Calcium 600mg + Vit D 400 Iu Tab) 1 tab PO BID SAUL Stop: 10/10/21 08:59 Last Admin: 09/10/21 07:58 Dose: 1 tab Documented by: Ondansetron HCl (Ondansetron Inj 2 Mg/Ml 2 Ml Vial) 4 mg IV Q6H PRN PRN Reason: Nausea Stop: 10/09/21 22:38 Oxycodone HCl (Oxycodone Hcl Ir 5 Mg Tab (Immediate Release)) 5 mg PO Q4H PRN PRN Reason: Pain Stop: 09/23/21 23:22 Last Admin: 09/10/21 00:42 Dose: 5 mg Documented by: Polyethylene Glycol (Polyethylene (Miralax) 17 Gm Pack) 17 gm PO DAILY PRN PRN Reason: Constipation Stop: 10/09/21 22:38 Potassium Chloride (Potassium Chloride 10 Meq Tabcr) 10 meq PO DAILY SAUL Stop: 10/10/21 08:59 Last Admin: 09/10/21 07:57 Dose: 10 meq Documented by: Propranolol HCl (Propranolol Hcl 60 Mg La Cap) 120 mg PO HS [facility] Stop: 10/10/21 20:59
[2021-09-10] MEDS: PROPRANOLOL HCL 60 MG LA CAP PO SCH (20:52)
[2021-09-10] MEDS: MAGNESIUM OXIDE 400 MG TAB PO SCH (20:52)
[2021-09-10] MEDS: ATORVASTATIN 20 MG TAB PO SCH (20:53)
--- NOTE | 2021-09-10 22:58 | Electrocardiogram Report ---
Test Reason : Blood Pressure : / mmHG Vent. Rate : 065 BPM Atrial Rate : 065 BPM P-R Int : 130 ms QRS Dur : 090 ms QT Int : 388 ms P-R-T Axes : 077 055 214 degrees QTc Int : 403 ms Normal sinus rhythm Septal infarct , age undetermined Abnormal ECG No previous ECGs available Confirmed by Uriel Machuca ([id number]) on 09/10/2021 10:58:13 PM Referred By: Confirmed By:Uriel Machuca
[2021-09-11] MEDS: dexAMETHasone 4 MG in SYRINGE 0 ML IV SCH ×5 (02:03→23:17)
[2021-09-11] MEDS: ACETAMINOPHEN 65 ML IV SCH ×3 (02:03→17:10)
[2021-09-11] MEDS: HEPARIN SOD 5,000 UNIT/0.5 ML VIAL SQ SCH ×3 (08:12→19:43)
[2021-09-11] MEDS: CALCIUM 600MG + VIT D 400 IU TAB PO SCH ×2 (08:13→19:42)
[2021-09-11] MEDS: amLODIPine BESYLATE 5 MG TAB PO SCH (08:13)
[2021-09-11] MEDS: FAMOTIDINE 20 MG TAB PO SCH (08:13)
[2021-09-11] MEDS: POTASSIUM CHLORIDE 10 MEQ TABCR PO SCH (08:13)
[2021-09-11 08:38] LABS: Hematocrit (blood only) 40.8 % (37-47); Hemoglobin 13.9 g/dL (12.0-16.0); Mean Corpuscular Hemoglobin 32.8 pg (25-34); Mean Corpuscular Hgb Conc 34.1 g/dL (32-36); Mean Corpuscular Volume 96.2 fL (80-100); Mean Platelet Volume 9.3 fL (7.4-10.4); Platelet Count 403 K/uL (130-400); RDW Coefficient of Variation 14.5 % (11.5-14.5); RDW Standard Deviation 50.9 fL (36.4-46.3); Red Blood Count 4.24 M/uL (4.2-5.4); White Blood Count 17.98 K/uL (4.8-10.8)
[2021-09-11 09:32] LABS: BUN Creatinine Ratio 29.5 (10-20); Calcium 9.7 mg/dl (8.5-10.1); Est GFR (African American) 114.5 ml/min; Est GFR (Non-African American) 98.8 ml/min; Magnesium 2.6 mg/dl (1.8-2.4); Potassium 4.2 mmol/L (3.5-5.1)
--- NOTE | 2021-09-11 15:32 | Hospitalist Progress Note ---
Date of Service September 11, 2021 Assessment & Plan (1) Cerebral edema: Plan: Secondary to brain metastasis from primary lung with vasogenic edema She has been on intravenous dexamethasone as per instruction from neurosurgery in [place] and also local oncologist Appreciate radiation oncology input and recommendation-likely to have mapping and radiation therapy starting sometime next week Appreciate input from oncologist who will evaluate the patient sooner for p ossible systemic chemotherapy Patient has been feeling much better since admission Clinically better but he still has minimal nausea and minimal headache She is not yet ready to be discharged (2) Nausea: Plan: Symptomatic treatment Nausea is better but is still there (3) Lung cancer metastatic to brain: Plan: This is a 66yo F with a PMH of lung cancer with mets to brain, history of SVT, HTN, HLD, lower back pain presenting with nausea, inability for PO intake and headaches. Was recently diagnosed with metastatic lung cancer and had cervical lymph node biopsy performed at [place] yesterday with plans for lung biopsy Was recently started on p.o. prednisone due to multiple mets to the brain but is not been able to tolerate over the past few days due to nausea and headaches CT head with at least two intra-axial masses measuring up to 2.8 cm as described above compatible with the patient's history of known intracranial metastatic disease which demonstrate considerable amount of surrounding vasogenic edema resulting in areas of gyral expansion and sulcal effacement. No definite acute intracranial hemorrhage, midline shift or hydrocephalus Following with Dr. Osborne of neurosurgery at [place]. Once lung biopsy comes back, plan for WBRT and systemic therapy Discussed with Dr. Kenny of med onc, who does not feel patient needs to be transferred right now Starting IV Decadron 4mg Q6H, consulting rad onc. Touching base [place] [facility] [place] (4) HTN (hypertension): Plan: Continue Norvasc, propranolol Remains on the upper side at 160/73 (5) Hyponatremia: Plan: Secondary to component of SIADH Sodium level has been improving (6) Hypokalemia: Plan: Na of 127, K 3.4 in setting of poor PO intake Starting IV fluids, daily BMP, clear liquids Potassium level has been normalized (7) SVT (supraventricular tachycardia): Plan: Continue propranolol DVT Ppx: SQ heparin Code status: FULL PCP: Brian Dispo: Admitted to PCU Admission and Anticipated Discharge Date Admission Date: September 09, 2021 Subjective 09/10/2021 The patient was seen and examined in telemetry unit She complains to have's minimal pain in the neck and head Her nausea and vomiting have improved Denies any cough and/or shortness of breath or any hemoptysis Clinically better 09/11/2021 The patient was seen and examined in telemetry unit She remains stable but still complains to have nausea and generally weak She mentions that she is not yet ready to be discharged Review of Systems Review of Systems: All systems reviewed and are unremarkable except as noted below Neurologic: Generalized weakness with minimal headache Physical Exam Physical Exam: Lying in bed without any acute distress but looked very depressed Constitutional: + ill appearing and average body habitus Eyes: PERRL, conjunctivae normal, anicteric sclerae ENMT: external ear and nose normal, oropharynx normal Neck: trachea midline, no thyromegaly Respiratory: no respiratory distress and no cough Auscultation: lungs clear to auscultation bilaterally Cardiovascular: Rate/Rhythm: regular rate and regular rhythm; not tachycardic Heart Sounds: normal S1 and normal S2; no murmur Extremities: no edema Gastrointestinal (Abdomen): Inspection/Auscultation: normal bowel sounds; abdomen not distended Percussion/Palpation: abdomen soft; abdomen nontender Lymphatic: no cervical or axillary lymphadenopathy Results & Data Results & [facility]) Vital Signs (Past 12 Hours) Vital Signs Temp Pulse Pulse Resp BP Pulse Ox 09/11/21 11:43 37 C 56 L 16 151/85 H 96 09/11/21 08:00 54 L 09/11/21 07:00 36.8 C 54 L 20 160/83 H 94 09/11/21 03:55 36.6 C 55 L 16 137/75 96 Laboratory Results Short CBC 09/11/21 Range/Units 07:51 WBC 17.98 H (4.8-10.8) K/uL Hgb 13.9 (12.0-16.0) g/dL Hct 40.8 (37-47) % Plt Count 403 H (130-400) K/uL BMP 09/11/21 07:51 Sodium 134 L Potassium 4.2 Chloride 100 Carbon Dioxide 23 BUN 15 Creatinine 0.51 L Glucose 122 H Calcium 9.7 Medications Administered Current Inpatient Medications Amlodipine Besylate (Amlodipine Besylate 5 Mg Tab) 5 mg PO DAILY [facility] Stop: 10/10/21 08:59 Last Admin: 09/11/21 08:13 Dose: 5 mg Documented by: Atorvastatin Calcium (Atorvastatin 20 Mg Tab) 20 mg PO HS SAUL Stop: 10/10/21 20:59 Last Admin: 09/10/21 20:53 Dose: 20 mg Documented by: Cetirizine HCl (Cetirizine Hcl 10 Mg Tablet) 10 mg PO HS PRN PRN Reason: Allergy Symptoms Stop: 10/09/21 22:05 Famotidine (Famotidine 20 Mg Tab) 20 mg PO QAM SAUL Stop: 10/10/21 08:59 Last Admin: 09/11/21 08:13 Dose: 20 mg Documented by: Heparin Sodium (Porcine) (Heparin Sod 5,000 Unit/0.5 Ml Vial) 5,000 units SQ Q12 SAUL Stop: 10/10/21 08:59 Last Admin: 09/11/21 08:15 Dose: Not Given Documented by: Dexamethasone 4 mg/ Syringe 1 mls @ 1 mls/min IV Q6H SAUL Stop: 10/09/21 18:06 Last Admin: 09/11/21 12:06 Dose: 1 mls/min Documented by: Acetaminophen (Ofirmev) 65 mls @ 260 mls/hr IV Q8H SAUL Stop: 09/13/21 01:59 Last Infusion: 09/11/21 11:06 Dose: Infused Documented by: Promethazine HCl 6.25 mg/ (Sodium Chloride) 50.25 mls @ 201 mls/hr IV Q6H PRN PRN Reason: Nausea And Vomiting Stop: 10/09/21 22:38 Last Infusion: 09/10/21 19:56 Dose: Infused Documented by: Magnesium Oxide (Magnesium Oxide 400 Mg Tab) 400 mg PO HS SAUL Stop: 10/10/21 20:59 Last Admin: 09/10/21 20:52 Dose: 400 mg Documented by: Multivitamins/Minerals (Calcium 600mg + Vit D 400 Iu Tab) 1 tab PO BID SAUL Stop: 10/10/21 08:59 Last Admin: 09/11/21 08:13 Dose: 1 tab Documented by: Ondansetron HCl (Ondansetron Inj 2 Mg/Ml 2 Ml Vial) 4 mg IV Q6H PRN PRN Reason: Nausea Stop: 10/09/21 22:38 Last Admin: 09/10/21 18:40 Dose: 4 mg Documented by: Oxycodone HCl (Oxycodone Hcl Ir 5 Mg Tab (Immediate Release)) 5 mg PO Q4H PRN PRN Reason: Pain Stop: 09/23/21 23:22 Last Admin: 09/10/21 00:42 Dose: 5 mg Documented by: Polyethylene Glycol (Polyethylene (Miralax) 17 Gm Pack) 17 gm PO DAILY PRN PRN Reason: Constipation Stop: 10/09/21 22:38 Potassium Chloride (Potassium Chloride 10 Meq Tabcr) 10 meq PO DAILY SAUL Stop: 10/10/21 08:59 Last Admin: 09/11/21 08:13 Dose: 10 meq Documented by: Propranolol HCl (Propranolol Hcl 60 Mg La Cap) 120 mg PO HS [facility] Stop: 10/10/21 20:59 Last Admin: 09/10/21 20:52 Dose: 120 mg Documented by:
[2021-09-11] MEDS: ATORVASTATIN 20 MG TAB PO SCH (19:42)
[2021-09-11] MEDS: MAGNESIUM OXIDE 400 MG TAB PO SCH (19:43)
[2021-09-11] MEDS: PROPRANOLOL HCL 60 MG LA CAP PO SCH (19:44)
[2021-09-12] MEDS: ACETAMINOPHEN 65 ML IV SCH ×2 (01:45→10:58)
[2021-09-12] MEDS: dexAMETHasone 4 MG in SYRINGE 0 ML IV SCH ×2 (05:28→12:11)
[2021-09-12 07:57] LABS: Hematocrit (blood only) 41.3 % (37-47); Hemoglobin 14.3 g/dL (12.0-16.0); Mean Corpuscular Hemoglobin 33.2 pg (25-34); Mean Corpuscular Hgb Conc 34.6 g/dL (32-36); Mean Corpuscular Volume 95.8 fL (80-100); Mean Platelet Volume 9.2 fL (7.4-10.4); Platelet Count 388 K/uL (130-400); RDW Coefficient of Variation 14.4 % (11.5-14.5); RDW Standard Deviation 50.9 fL (36.4-46.3); Red Blood Count 4.31 M/uL (4.2-5.4); White Blood Count 18.72 K/uL (4.8-10.8)
[2021-09-12] MEDS: FAMOTIDINE 20 MG TAB PO SCH (08:09)
[2021-09-12] MEDS: POTASSIUM CHLORIDE 10 MEQ TABCR PO SCH (08:09)
[2021-09-12] MEDS: amLODIPine BESYLATE 5 MG TAB PO SCH (08:09)
[2021-09-12] MEDS: HEPARIN SOD 5,000 UNIT/0.5 ML VIAL SQ SCH (08:10)
[2021-09-12] MEDS: CALCIUM 600MG + VIT D 400 IU TAB PO SCH (08:10)
--- NOTE | 2021-09-12 11:55 | Hospitalist Progress Note ---
Date of Service September 12, 2021 Assessment & Plan (1) Cerebral edema: Plan: Secondary to brain metastasis from primary lung with vasogenic edema She has been on intravenous dexamethasone as per instruction from neurosurgery in [place] and also local oncologist Appreciate radiation oncology input and recommendation-likely to have mapping and radiation therapy starting sometime next week Appreciate input from oncologist who will evaluate the patient sooner for p ossible systemic chemotherapy Patient has been feeling much better since admission Clinically better but he still has minimal nausea and minimal headache She was much better this morning and is ready to be discharged (2) Nausea: Plan: Symptomatic treatment Nausea is better but is still there (3) Lung cancer metastatic to brain: Plan: This is a 66yo F with a PMH of lung cancer with mets to brain, history of SVT, HTN, HLD, lower back pain presenting with nausea, inability for PO intake and headaches. Was recently diagnosed with metastatic lung cancer and had cervical lymph node biopsy performed at [place] yesterday with plans for lung biopsy Was recently started on p.o. prednisone due to multiple mets to the brain but is not been able to tolerate over the past few days due to nausea and headaches CT head with at least two intra-axial masses measuring up to 2.8 cm as described above compatible with the patient's history of known intracranial metastatic disease which demonstrate considerable amount of surrounding vasogenic edema resulting in areas of gyral expansion and sulcal effacement. No definite acute intracranial hemorrhage, midline shift or hydrocephalus Following with Dr. Osborne of neurosurgery at [place]. Once lung biopsy comes back, plan for WBRT and systemic therapy Discussed with Dr. Kenny of med onc, who does not feel patient needs to be transferred right now Starting IV Decadron 4mg Q6H, consulting rad onc. Touching base with Dr. Osborne of [place] neurosurgery Has non-small cell lung cancer likely adenocarcinoma of the lung as per biopsy result (4) HTN (hypertension): Plan: Continue Norvasc, propranolol Remains on the upper side at 160/73 (5) Hyponatremia: Plan: Secondary to component of SIADH Sodium level has been improving (6) Hypokalemia: Plan: Na of 127, K 3.4 in setting of poor PO intake Starting IV fluids, daily BMP, clear liquids Potassium level has been normalized (7) SVT (supraventricular tachycardia): Plan: Continue propranolol DVT Ppx: SQ heparin Code status: FULL PCP: Torres Dispo: Admitted to PCU Admission and Anticipated Discharge Date Admission Date: September 09, 2021 Subjective 09/10/2021 The patient was seen and examined in telemetry unit She complains to have's minimal pain in the neck and head Her nausea and vomiting have improved Denies any cough and/or shortness of breath or any hemoptysis Clinically better 09/11/2021 The patient was seen and examined in telemetry unit She remains stable but still complains to have nausea and generally weak She mentions that she is not yet ready to be discharged 09/12/2021 The patient was seen and examined in telemetry unit She remains weak but otherwise denies any nausea and/or vomiting Denies any pain in the neck Should be discharged home this afternoon Review of Systems Review of Systems: All systems reviewed and are unremarkable except as noted below Neurologic: Generalized weakness with minimal headache Physical Exam Physical Exam: Lying in bed without any acute distress but looked very depressed Constitutional: + ill appearing and average body habitus Eyes: PERRL, conjunctivae normal, anicteric sclerae ENMT: external ear and nose normal, oropharynx normal Neck: trachea midline, no thyromegaly Respiratory: no respiratory distress and no cough Auscultation: lungs clear to auscultation bilaterally Cardiovascular: Rate/Rhythm: regular rate and regular rhythm; not tachycardic Heart Sounds: normal S1 and normal S2; no murmur Extremities: no edema Gastrointestinal (Abdomen): Inspection/Auscultation: normal bowel sounds; abdomen not distended Percussion/Palpation: abdomen soft; abdomen nontender Musculoskeletal: No acute arthritis in any joint Neurologic: Alert, awake and oriented x3. No focal sensory and motor deficit appreciated Lymphatic: no cervical or axillary lymphadenopathy Results & Data Results & Data ([facility]) Vital Signs (Past 12 Hours) Vital Signs Temp Pulse Pulse Resp BP BP Pulse Ox 09/12/21 11:44 36.7 C 50 L 16 149/66 H 97 09/12/21 07:52 36.7 C 52 L 16 160/74 H 97 09/12/21 07:00 47 L 09/12/21 03:34 36.6 C 54 L 17 164/72 H 98 09/12/21 03:23 56 L Laboratory Results Short CBC 09/12/21 Range/Units 07:15 WBC 18.72 H (4.8-10.8) K/uL Hgb 14.3 (12.0-16.0) g/dL Hct 41.3 (37-47) % Plt Count 388 (130-400) K/uL Medications Administered Current Inpatient Medications Amlodipine Besylate (Amlodipine Besylate 5 Mg Tab) 5 mg PO DAILY SAUL Stop: 10/10/21 08:59 Last Admin: 09/12/21 08:09 Dose: 5 mg Documented by: Atorvastatin Calcium (Atorvastatin 20 Mg Tab) 20 mg PO HS SAUL Stop: 10/10/21 20:59 Last Admin: 09/11/21 19:42 Dose: 20 mg Documented by: Cetirizine HCl (Cetirizine Hcl 10 Mg Tablet) 10 mg PO HS PRN PRN Reason: Allergy Symptoms Stop: 10/09/21 22:05 Famotidine (Famotidine 20 Mg Tab) 20 mg PO QAM SAUL Stop: 10/10/21 08:59 Last Admin: 09/12/21 08:09 Dose: 20 mg Documented by: Heparin Sodium (Porcine) (Heparin Sod 5,000 Unit/0.5 Ml Vial) 5,000 units SQ Q12 SAUL Stop: 10/10/21 08:59 Last Admin: 09/12/21 08:10 Dose: Not Given Documented by: Dexamethasone 4 mg/ Syringe 1 mls @ 1 mls/min IV Q6H SAUL Stop: 10/09/21 18:06 Last Admin: 09/12/21 05:28 Dose: 1 mls/min Documented by: Acetaminophen (Ofirmev) 65 mls @ 260 mls/hr IV Q8H SAUL Stop: 09/13/21 01:59 Last Infusion: 09/12/21 11:18 Dose: Infused Documented by: Promethazine HCl 6.25 mg/ (Sodium Chloride) 50.25 mls @ 201 mls/hr IV Q6H PRN PRN Reason: Nausea And Vomiting Stop: 10/09/21 22:38 Last Infusion: 09/10/21 19:56 Dose: Infused Documented by: Magnesium Oxide (Magnesium Oxide 400 Mg Tab) 400 mg PO HS SAUL Stop: 10/10/21 20:59 Last Admin: 09/11/21 19:43 Dose: 400 mg Documented by: Multivitamins/Minerals (Calcium 600mg + Vit D 400 Iu Tab) 1 tab PO BID SAUL Stop: 10/10/21 08:59 Last Admin: 09/12/21 08:10 Dose: 1 tab Documented by: Ondansetron HCl (Ondansetron Inj 2 Mg/Ml 2 Ml Vial) 4 mg IV Q6H PRN PRN Reason: Nausea Stop: 10/09/21 22:38 Last Admin: 09/10/21 18:40 Dose: 4 mg Documented by: Oxycodone HCl (Oxycodone Hcl Ir 5 Mg Tab (Immediate Release)) 5 mg PO Q4H PRN PRN Reason: Pain Stop: 09/23/21 23:22 Last Admin: 09/10/21 00:42 Dose: 5 mg Documented by: Polyethylene Glycol (Polyethylene (Miralax) 17 Gm Pack) 17 gm PO DAILY PRN PRN Reason: Constipation Stop: 10/09/21 22:38 Potassium Chloride (Potassium Chloride 10 Meq Tabcr) 10 meq PO DAILY SAUL Stop: 10/10/21 08:59 Last Admin: 09/12/21 08:09 Dose: 10 meq Documented by: Propranolol HCl (Propranolol Hcl 60 Mg La Cap) 120 mg PO HS SAUL Stop: 10/10/21 20:59 Last Admin: 09/11/21 19:44 Dose: 120 mg Documented by:
--- NOTE | 2021-09-12 17:10 | Discharge Summary ---
Date of Service September 12, 2021 Admission HPI Per Admitting Provider This is a 66yo F with a PMH of lung cancer with mets to brain, history of SVT, HTN, HLD, lower back pain presenting with nausea and headache. Was recently diagnosed with metastatic lung cancer and had cervical lymph node biopsy performed at [place] yesterday with plans for lung biopsy. Was recently started on p.o. prednisone due to multiple mets to the brain but is not been able to tolerate over the past few days due to nausea and headaches. Has also not been able to take other home meds over the past few days due to nausea. Has been able to tolerate some liquids but very limited p.o. intake. No fever or chills. No abdominal pain. No black or bloody bowel movements. No chest pain, shortness of breath, dysuria, diarrhea constipation. Per outpatient records, patient was discussed at multidisciplinary neuro oncology tumor board in [place] today. Patient is following with Dr. Osborne. Once lung biopsy comes back, plan for WBRT and systemic therapy. Patient called neurosurgery earlier today due to feeling poorly and was directed to [place] ED for hydration. 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 with associated edema, hyponatremia, nausea vomiting, hypertension Discharge Exam Lying in bed without any acute distress but looked very depressed Constitutional + ill appearing and average body habitus Eyes PERRL, conjunctivae normal, anicteric sclerae ENMT external ear and nose normal, oropharynx normal Neck trachea midline, no thyromegaly Respiratory no respiratory distress and no cough Auscultation: lungs clear to auscultation bilaterally Cardiovascular Rate/Rhythm: regular rate and regular rhythm; not tachycardic Heart Sounds: normal S1 and normal S2; no murmur Extremities: no edema Gastrointestinal (Abdomen) Inspection/Auscultation: normal bowel sounds; abdomen not distended Percussion/Palpation: abdomen soft; abdomen nontender Lymphatic no cervical or axillary lymphadenopathy Discharge Data Allergies Allergy/AdvReac Type Severity Reaction Status Date / Time shellfish derived Allergy Unknown Unknown Unverified 09/09/21 15:22 Consultations 09/09/21 17:08 ED Decision to Admit Stat 09/09/21 18:04 Consult Radiation Oncology Routine Ordered Studies 09/09/21 13:53 CT head/brain wo con Stat Hospital Course (1) Cerebral edema: Secondary to brain metastasis from primary lung with vasogenic edema She has been on intravenous dexamethasone as per instruction from neurosurgery in [place] and also local oncologist Appreciate radiation oncology input and recommendation-likely to have mapping and radiation therapy starting sometime next week Appreciate input from oncologist who will evaluate the patient sooner for possible systemic chemotherapy Patient has been feeling much better since admission Clinically better but he still has minimal nausea and minimal headache She was much better this morning and is ready to be discharged (2) Nausea: Symptomatic treatment Nausea is better but is still there (3) Lung cancer metastatic to brain: This is a 66yo F with a PMH of lung cancer with mets to brain, history of SVT, HTN, HLD, lower back pain presenting with nausea, inability for PO intake and headaches. Was recently diagnosed with metastatic lung cancer and had cervical lymph node biopsy performed at [place] yesterday with plans for lung biopsy Was recently started on p.o. prednisone due to multiple mets to the brain but is not been able to tolerate over the past few days due to nausea and headaches CT head with at least two intra-axial masses measuring up to 2.8 cm as described above compatible with the patient's history of known intracranial metastatic disease which demonstrate considerable amount of surrounding vasogenic edema resulting in areas of gyral expansion and sulcal effacement. No definite acute intracranial hemorrhage, midline shift or hydrocephalus Following with Dr. Osborne of neurosurgery at [place]. Once lung biopsy comes back, plan for WBRT and systemic therapy Discussed with Dr. Kenny of med onc, who does not feel patient needs to be transferred right now Starting IV Decadron 4mg Q6H, consulting rad onc. Touching [place] with Dr. Osborne of [facility] neurosurgery Has non-small cell lung cancer likely adenocarcinoma of the lung as per biopsy result (4) HTN (hypertension): Continue Norvasc, propranolol Remains on the upper side at 160/73 (5) Hyponatremia: Secondary to component of SIADH Sodium level has been improving (6) Hypokalemia: Na of 127, K 3.4 in setting of poor PO intake Starting IV fluids, daily BMP, clear liquids Potassium level has been normalized (7) SVT (supraventricular tachycardia): Continue propranolol DVT Ppx: SQ heparin Code status: FULL PCP: Brian Dispo: Admitted to PCU Total Time Total Time Spent Total Time Spent (In Minutes): 35 minutes Discharge Plan Discharge Items Patient Disposition: Home - Self-Care Reason For Visit: NAUSEA, HEADACHE, CANCER WITH BRAIN METS Discharge Diagnosis: 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 Torres on 16 September [address] [facility] oncology service will give you a call with an appointment as soon as possible) Diet: Regular Addtl Attending Provider Instructions: Please take precautions to avoid falls Keep appointments with your healthcare providers Pending Studies at Discharge: No Stand-Alone Forms: My uSamp, Smoking Cessation Medications and DC Order Prescriptions: New ondansetron HCl [Zofran] 4 mg tablet 4 mg PO DAILY 3 Days Qty: 3 RF: 0 dexamethasone 4 mg tablet 4 mg PO Q6H Qty: 60 RF: 0 Continued aspirin-dipyridamole 25-200 mg Capsule, Er Multiphase 12 Hr 1 cap PO BID RF: 0 potassium chloride 10 mEq Capsule, Extended Release 10 meq PO DAILY RF: 0 atorvastatin [Lipitor] 20 mg Tablet 20 mg PO HS RF: 0 cetirizine [Zyrtec] 10 mg Tablet 10 mg PO HS PRN (Reason: Allergy Symptoms) RF: 0 amlodipine [Norvasc] 5 mg Tablet 5 mg PO DAILY RF: 0 famotidine 20 mg tablet 20 mg PO QAM RF: 0 propranolol [Inderal LA] 120 mg Capsule,Extended Release 24 Hr 120 mg PO HS RF: 0 magnesium oxide 250 mg magnesium Tablet 250 mg PO HS RF: 0 Calcium 600 + D(3) 600 mg calcium- 200 unit Capsule 1 cap PO BID RF: 0 Discontinued prednisone 20 mg tablet 20 mg PO UD RF: 0 Discharge Orders: Discharge Order (Routine); Ordered 09/12/21 Ordered By: Sarita Sethi Admission Data Admit Date/Time: 09/09/21 18:04 Attending Provider: Sarita Sethi Admit Provider: Tye Alex Primary Care Provider: PCP,NO Other Providers: Maya Kenny ; Tye Alex Other Interventions: Discharge Summary Assessment (RN) Last Done: 09/12/21 13:41
== END 2021-09-12 15:47 | disposition home or self-care (01) | DRG 54 ==
LOC: ED 12:14 → SUATTDRO 18:04 → 2S 18:04

== ENCOUNTER 2021-09-20 23:50 | Inpatient (IN) ==
[2021-09-21] MEDS ORDERED: SODIUM CHLORIDE 0.9% 1000ML 1,000 ML IV SCH (01:30)
[2021-09-21 01:32] LABS: Eosinophils # (auto) 0.01 K/uL (0-0.5); Eosinophils % (auto) 0.1 %; Hematocrit (blood only) 43.6 % (37-47); Hemoglobin 15.5 g/dL (12.0-16.0); Immature Granulocytes % (auto) 0.5 %; Lymphocytes # (auto) 1.11 K/uL (1.2-3.4); Lymphocytes % (auto) 5.7 %; Mean Corpuscular Hemoglobin 33.4 pg (25-34); Mean Corpuscular Hgb Conc 35.6 g/dL (32-36); Monocytes # (auto) 0.61 K/uL (0.11-0.59); Monocytes % (auto) 3.1 %; Neutrophils # (auto) 17.62 K/uL (1.4-6.5); Neutrophils % (auto) 90.6 %; Platelet Count 359 K/uL (130-400); RDW Coefficient of Variation 13.9 % (11.5-14.5); RDW Standard Deviation 47.6 fL (36.4-46.3); Red Blood Count 4.64 M/uL (4.2-5.4); White Blood Count 19.45 K/uL (4.8-10.8)
[2021-09-21 01:42] LABS: Partial Thromboplastin Time 25.8 Seconds (21.0-31.0); Prothrombin Time 10.3 Seconds (9.0-12.0)
[2021-09-21 01:53] LABS: BUN Creatinine Ratio 35.2 (10-20); Calcium 8.9 mg/dl (8.5-10.1); Creatinine Clr Calc Pharmacy 58.5 ml/min; Est GFR (Non-African American) 95.8 ml/min; Magnesium 2.4 mg/dl (1.8-2.4); Potassium 4.1 mmol/L (3.5-5.1)
--- NOTE | 2021-09-21 01:58 | Emergency Department Note ---
History of Present Illness General Chief complaint: Respiratory Problems Stated complaint: HARD TIME BREATHING,CAN'T WALK STAGE 4 CANCER Time Seen by Provider: 09/21/21 01:02 History of Present Illness This is a 66-year-old female presenting to the emergency department for evaluation of worsening weakness and difficulty ambulating. The patient has a very unfortunate recent medical history with new diagnosis of what appears to be metastatic lung cancer. The metastasis does include the brain, and she is curr ently on steroids for increased cerebral edema. The patient was admitted to this facility a few weeks ago and was discharged home. She does have upcoming appointments in the next week with her [facility] team to explore options of chemotherapy and radiation. She states that this has not yet occurred and other than steroids has not had significant change in her normal medications. The patient is accompanied by her [id number], who lives next door, and does help as cradle placer. The patient herself has had deterioration over the past 24 hours as far as ability to walk and perform ADLs. She is usually without a walker, but now with a walker she is shuffling her feet and having di fficulty using the bathroom. The patient had some flushing of her chest earlier today but does not report distinct fever. She is not immunized against Covid. The patient rates her overall discomfort an 8/10. Home Medications Medication Instructions Recorded Confirmed Type amlodipine 5 mg tablet (Norvasc) 5 mg PO DAILY 09/09/21 09/21/21 History aspirin 25 mg-dipyridamole 200 mg 1 cap PO BID 09/09/21 09/21/21 History capsule,ext.release 12 hr multiphase atorvastatin 20 mg tablet (Lipitor) 20 mg PO HS 09/09/21 09/21/21 History calcium carbonate 600 mg-vitamin 1 cap PO BID 09/09/21 09/21/21 History D3 5 mcg (200 unit) capsule (Calcium 600 + D(3)) cetirizine 10 mg tablet (Zyrtec) 10 mg PO HS PRN 09/09/21 09/21/21 History famotidine 20 mg tablet 20 mg PO QAM 09/09/21 09/21/21 History magnesium oxide 250 mg PO HS 09/09/21 09/21/21 History potassium chloride 10 mEq 10 meq PO DAILY 09/09/21 09/21/21 History capsule,extended release propranolol 120 mg capsule,24 120 mg PO HS 09/09/21 09/21/21 History hr,extended release (Inderal LA) dexamethasone 4 mg tablet 4 mg PO Q6H #60 tab 09/12/21 09/21/21 Rx rizatriptan 10 mg tablet 10 mg PO UD PRN 09/21/21 09/21/21 History Allergies Allergy/AdvReac Type Severity Reaction Status Date / Time shellfish derived Allergy Unknown Unknown Unverified 09/21/21 01:21 Past Med/Surg History Medical History HTN (hypertension) Hypertension Lung cancer Migraine SVT (supraventricular tachycardia) Surgical History H/O lymph node biopsy H/O: hysterectomy Family History Other Cancer Hypertension Social History Smoking Status: Former smoker Second Hand Exposure: No; Do You Dip or Chew Tobacco: No; Tobacco Cessation Education Requested by Patient: No Hx Alcohol Use: No Hx Substance Use: No Preferred Language: [place] Communication Ability: Effective Academic Support Center Director Required: No Beliefs That Will Affect Care: None Current Living Situation: Alone How many Children do You have: 0 Other Information That Helps Us Care for You: No Feels Safe at Home: Yes Safety Concerns: Feels Safe At This Time Assistive Devices: Walker Review of Systems A total of 10 systems reviewed and were otherwise negative Physical Exam Vital Signs Vital Signs - 24 hr 09/20/21 23:58 09/21/21 01:24 09/21/21 01:30 Temperature 36.3 C L Temperature Source Axillary Pulse Rate 56 L 50 L Pulse Rate from SpO2 Sensor 53 L Respiratory Rate 26 H 19 Respiratory Effort / Characteristics Short of Breath Respiratory Depth Shallow Blood Pressure 147/84 H 194/75 H Blood Pressure Mean 105 114 Pulse Oximetry 98 98 97 Oxygen Delivery Method Room Air Room Air Sepsis Recent Fever Within 48 Hours No Sepsis New/Unexplained Change in Mental Status No Sepsis Action Taken by Nursing No Action Required 09/21/21 03:00 Temperature Temperature Source Pulse Rate 54 L Pulse Rate from SpO2 Sensor Respiratory Rate 20 Respiratory Effort / Characteristics Respiratory Depth Blood Pressure 120/82 Blood Pressure Mean 94 Pulse Oximetry 98 Oxygen Delivery Method Sepsis Recent Fever Within 48 Hours Sepsis New/Unexplained Change in Mental Status Sepsis Action Taken by Nursing VITALS: Vitals are noted on the nurse's note and reviewed by myself. Vital signs stable. GENERAL: Cachectic and generally ill-appearing frail female HEAD: Normocephalic atraumatic. HEART: Regular rate and rhythm without murmurs gallops or rubs. LUNGS: Clear to auscultation bilaterally without wheezes, rales or rhonchi. No retractions or accessory muscle use. ABDOMEN: Positive normal bowel sounds x 4. Soft, nontender, without masses or organomegaly. MUSCULOSKELETAL: No muscle atrophy, erythema, or edema noted. NEURO: Patient was alert and oriented to person place and time. CN II through XII grossly intact. GCS 15. Course Administered Medications Dexamethasone (Dexamethasone 4 Mg Tab) 4 mg PO Q6 SAUL Stop: 10/21/21 05:59 Last Admin: 09/21/21 05:06 Dose: 4 mg Documented by: [id number] Senna/Docusate Sodium (Docusate Sodium/Senna 50/8.6mg Tab) 1 tab PO QAM SAUL Stop: 10/21/21 05:59 Last Admin: 09/21/21 05:06 Dose: 1 tab Documented by: [id number] Discontinued Medications Sodium Chloride (Nss 1000ml) 1,000 mls @ 999 mls/hr IV .Q1H1M SAUL Stop: 09/21/21 02:30 Last Infusion: 09/21/21 03:02 Dose: 0 mls/hr Documented by: [id number] Admin: 09/21/21 02:00 Dose: 999 mls/hr Documented by: [id number] Ioversol (Optiray 320 125ml) 120 ml IV ONCE ONE Stop: 09/21/21 04:25 Last Admin: 09/21/21 04:17 Dose: 120 ml Documented by: [id number] Polyethylene Glycol (Polyethylene (Miralax) 17 Gm Pack) 17 gm PO NOW STA Stop: 09/21/21 03:35 Last Admin: 09/21/21 05:06 Dose: 17 gm Documented by: [id number] Medical Decision Making Differential Diagnosis Differential includes cancer, dehydration,acute coronary syndrome, myocardial infarction, CVA, TIA, anemia, infection, pneumonia, UTI, pyelonephritis, poor nutrition, dehydration, electrolyte disturbance,hypoglycemia. Laboratory Data Result diagrams: 09/21/21 01:20 09/21/21 01:20 Lab Results 09/21/21 09/21/21 09/21/21 Range/Units 01:20 01:20 01:20 WBC 19.45 H (4.8-10.8) K/uL RBC 4.64 (4.2-5.4) M/uL Hgb 15.5 (12.0-16.0) g/dL Hct 43.6 (37-47) % MCV 94.0 (80-100) fL MCH 33.4 (25-34) pg MCHC 35.6 (32-36) g/dL RDW Std Deviation 47.6 H (36.4-46.3) fL RDW Coeff of Chinyere 13.9 (11.5-14.5) % Plt Count 359 (130-400) K/uL MPV 9.0 (7.4-10.4) fL Immature Gran % (Auto) 0.5 % Neut % (Auto) 90.6 % Lymph % (Auto) 5.7 % Gentry % (Auto) 3.1 % Eos % (Auto) 0.1 % Baso % (Auto) 0.0 % Neut # (Auto) 17.62 H (1.4-6.5) K/uL Lymph # (Auto) 1.11 L (1.2-3.4) K/uL Gentry # (Auto) 0.61 H (0.11-0.59) K/uL Eos # (Auto) 0.01 (0-0.5) K/uL Baso # (Auto) 0.00 (0-0.2) K/uL Immature Gran # (Auto) 0.10 H (0.00-0.02) K/uL PT 10.3 (9.0-12.0) Seconds INR 1.0 (0.9-1.1) APTT 25.8 (21.0-31.0) Seconds PTT Ratio 1.0 Sodium 122 L (136-145) mmol/L Potassium 4.1 (3.5-5.1) mmol/L Chloride 90 L (98-107) mmol/L Carbon Dioxide 24 (21-32) mmol/L Anion Gap 8.0 (3-11) BUN 20 H (7-18) mg/dl Creatinine 0.56 L (0.6-1.2) mg/dl Est Cr Clr Drug Dosing 58.5 ml/min Est GFR ( Amer) 111.0 ml/min Est GFR (Non-Af Amer) 95.8 ml/min BUN/Creatinine Ratio 35.2 H (10-20) Glucose 126 H (70-99) mg/dl Osmolality (280-300) mOsm/kg Calcium 8.9 (8.5-10.1) mg/dl Magnesium 2.4 (1.8-2.4) mg/dl Total Bilirubin 0.8 (0.2-1) mg/dl AST 14 L (15-37) U/L ALT 26 (12-78) Alkaline Phosphatase 49 (45-117) U/L Troponin I 0.041 (0-0.045) ng/ml Total Protein 6.8 (6.4-8.2) gm/dl Albumin 3.0 L (3.4-5.0) gm/dl Globulin 3.8 (2.5-4.0) gm/dl Albumin/Globulin Ratio 0.8 L (0.9-2) TSH 0.378 (0.300-4.500) uIu/ml Urine Color Urine Appearance (Clear) Urine pH (4.5-7.5) Ur Specific [place] (1.000-1.030) Urine Protein (Negative) Urine Glucose (UA) (Negative) Urine Ketones (Negative) Urine Blood (Negative) Urine Nitrite (Negative) Urine Bilirubin (Negative) Urine Urobilinogen (Negative) Ur Leukocyte Esterase (Negative) Urine WBC (Auto) (0-5) /hpf Urine RBC (Auto) (0-4) /hpf U Hyaline Cast (Auto) (0-5) /lpf U Epithel Cells (Auto) (0-5) /lpf Urine Bacteria (Auto) (Negative) Urine Osmolality (500-800) mOsm/kg Ur Random Sodium mmol/L SARS-CoV-2, RNA, NAAT (NEGATIVE) 09/21/21 09/21/21 09/21/21 Range/Units 01:20 01:40 02:00 WBC (4.8-10.8) K/uL RBC (4.2-5.4) M/uL Hgb (12.0-16.0) g/dL Hct (37-47) % MCV (80-100) fL MCH (25-34) pg MCHC (32-36) g/dL RDW Std Deviation (36.4-46.3) fL RDW Coeff of Chinyere (11.5-14.5) % Plt Count (130-400) K/uL MPV (7.4-10.4) fL Immature Gran % (Auto) % Neut % (Auto) % Lymph % (Auto) % Gentry % (Auto) % Eos % (Auto) % Baso % (Auto) % Neut # (Auto) (1.4-6.5) K/uL Lymph # (Auto) (1.2-3.4) K/uL Gentry # (Auto) (0.11-0.59) K/uL Eos # (Auto) (0-0.5) K/uL Baso # (Auto) (0-0.2) K/uL Immature Gran # (Auto) (0.00-0.02) K/uL PT (9.0-12.0) Seconds INR (0.9-1.1) APTT (21.0-31.0) Seconds PTT Ratio Sodium (136-145) mmol/L Potassium (3.5-5.1) mmol/L Chloride (98-107) mmol/L Carbon Dioxide (21-32) mmol/L Anion Gap (3-11) BUN (7-18) mg/dl Creatinine (0.6-1.2) mg/dl Est Cr Clr Drug Dosing ml/min Est GFR ( Amer) ml/min Est GFR (Non-Af Amer) ml/min BUN/Creatinine Ratio (10-20) Glucose (70-99) mg/dl Osmolality 265 L (280-300) mOsm/kg Calcium (8.5-10.1) mg/dl Magnesium (1.8-2.4) mg/dl Total Bilirubin (0.2-1) mg/dl AST (15-37) U/L ALT (12-78) Alkaline Phosphatase (45-117) U/L Troponin I (0-0.045) ng/ml Total Protein (6.4-8.2) gm/dl Albumin (3.4-5.0) gm/dl Globulin (2.5-4.0) gm/dl Albumin/Globulin Ratio (0.9-2) TSH (0.300-4.500) uIu/ml Urine Color Yellow Urine Appearance Cloudy A (Clear) Urine pH 7.5 (4.5-7.5) Ur Specific [place] 1.015 (1.000-1.030) Urine Protein Negative (Negative) Urine Glucose (UA) Negative (Negative) Urine Ketones Negative (Negative) Urine Blood Negative (Negative) Urine Nitrite Negative (Negative) Urine Bilirubin Negative (Negative) Urine Urobilinogen Negative (Negative) Ur Leukocyte Esterase Negative (Negative) Urine WBC (Auto) 1-5 (0-5) /hpf Urine RBC (Auto) 0-4 (0-4) /hpf U Hyaline Cast (Auto) 1-5 (0-5) /lpf U Epithel Cells (Auto) 5-10 H (0-5) /lpf Urine Bacteria (Auto) Negative (Negative) Urine Osmolality (500-800) mOsm/kg Ur Random Sodium mmol/L SARS-CoV-2, RNA, NAAT NEGATIVE (NEGATIVE) 09/21/21 09/21/21 Range/Units 02:00 02:00 WBC (4.8-10.8) K/uL RBC (4.2-5.4) M/uL Hgb (12.0-16.0) g/dL Hct (37-47) % MCV (80-100) fL MCH (25-34) pg MCHC (32-36) g/dL RDW Std Deviation (36.4-46.3) fL RDW Coeff of Chinyere (11.5-14.5) % Plt Count (130-400) K/uL MPV (7.4-10.4) fL Immature Gran % (Auto) % Neut % (Auto) % Lymph % (Auto) % Gentry % (Auto) % Eos % (Auto) % Baso % (Auto) % Neut # (Auto) (1.4-6.5) K/uL Lymph # (Auto) (1.2-3.4) K/uL Gentry # (Auto) (0.11-0.59) K/uL Eos # (Auto) (0-0.5) K/uL Baso # (Auto) (0-0.2) K/uL Immature Gran # (Auto) (0.00-0.02) K/uL PT (9.0-12.0) Seconds INR (0.9-1.1) APTT (21.0-31.0) Seconds PTT Ratio Sodium (136-145) mmol/L Potassium (3.5-5.1) mmol/L Chloride (98-107) mmol/L Carbon Dioxide (21-32) mmol/L Anion Gap (3-11) BUN (7-18) mg/dl Creatinine (0.6-1.2) mg/dl Est Cr Clr Drug Dosing ml/min Est GFR ( Amer) ml/min Est GFR (Non-Af Amer) ml/min BUN/Creatinine Ratio (10-20) Glucose (70-99) mg/dl Osmolality (280-300) mOsm/kg Calcium (8.5-10.1) mg/dl Magnesium (1.8-2.4) mg/dl Total Bilirubin (0.2-1) mg/dl AST (15-37) U/L ALT (12-78) Alkaline Phosphatase (45-117) U/L Troponin I (0-0.045) ng/ml Total Protein (6.4-8.2) gm/dl Albumin (3.4-5.0) gm/dl Globulin (2.5-4.0) gm/dl Albumin/Globulin Ratio (0.9-2) TSH (0.300-4.500) uIu/ml Urine Color Urine Appearance (Clear) Urine pH (4.5-7.5) Ur Specific [place] (1.000-1.030) Urine Protein (Negative) Urine Glucose (UA) (Negative) Urine Ketones (Negative) Urine Blood (Negative) Urine Nitrite (Negative) Urine Bilirubin (Negative) Urine Urobilinogen (Negative) Ur Leukocyte Esterase (Negative) Urine WBC (Auto) (0-5) /hpf Urine RBC (Auto) (0-4) /hpf U Hyaline Cast (Auto) (0-5) /lpf U Epithel Cells (Auto) (0-5) /lpf Urine Bacteria (Auto) (Negative) Urine Osmolality 423 L (500-800) mOsm/kg Ur Random Sodium 31 mmol/L SARS-CoV-2, RNA, NAAT (NEGATIVE) Imaging Data Radiologist's Impression: Preliminary Findings Only See Final Report For Complete Findings CT HEAD: Comparison: 09/09/2021. We demonstrated slightly hyperdense rounded masses noted bilaterally, one in the left parafalcine region measuring 1.4 x 1.4 cm and 1 cm in the right periventricular region likely ascending within the right posterior lateral ventricle and measuring maximum 3.0 x 2.7 cm. There is surrounding vasogenic edema, overall no significant change in the interval. Underlying microangiopathic changes present. Bilateral paranasal sinuses and mastoids are clear. Radiologist:Lola Figueroa MD ECG Data Attestation: I personally reviewed and interpreted this ECG as follows: Indication: + weakness Additional Comments: Sinus bradycardia @48 bpm Anterior infarct (cited on or before 09-SEP-2021) Marked ST abnormality, possible inferior subendocardial injury Abnormal ECG When compared with ECG of 09-SEP-2021 13:43, Questionable change in initial forces of Anterior leads Inverted T waves have replaced nonspecific T wave abnormality in Inferior leads T wave inversion more evident in Anterior leads QT has lengthened MDM Narrative Physical exam and history were performed. Nursing notes, EMR, and Medication List were personally reviewed. Patient appears to have worsening weakness with relatively new diagnosis with l henrry cancer and metastasis. The patient appears very wasted and cachectic. Her EKG is with significant ST abnormality, particularly when compared to her EKG a few weeks ago. The case was discussed with my attending. IV access was established and labs were obtained. The patient was hydrated normal saline. She was sent to CT scan for imaging of her head to rule out worsening cerebral edema/bleed. The patient's blood work is as above and was reviewed. She does have a white blood cell count of 19,000. She does not have significant anemia. INR is 1.0. Sodium is quite low at 122 with chloride of 90. BUN is 20 and creatinine is 0.56. Transaminases are not diagnostic. Troponin x1 is technically negative, but is detectable at 0.041 compared to 2 weeks ago when it was not detectable. TSH shows euthyroid state. Urine is without distinct evidence of infection. Covid is negative. CT scan was performed and reviewed by myself and radiology showing no worsening of her metastasis. She does have some mild edema but this is not significantly worse than previous imaging. Overall the patient does not appear well for discharge home. She has wildly new EKG changes without acute ST elevation. Her troponin is detectable, and her sodium is quite low. [facility] the patient here in the ER. Please see their dictation for further patient course, plan, disposition. The chart was completed utilizing [employer] Speech Voice Recognition Software. Grammatical errors, random word insertions, pronoun errors, and incomplete sentences are an occasional consequence of this system due to software limitations, ambient noise, and hardware issues. Any formal questions or concerns about the content, text, or information contained within the body of this dictation should be directly addressed to the provider for clarification. . Impression & Plan Hyponatremia, Abnormal EKG, Lung cancer metastatic to brain, Weakness Discharge Plan Visit Data Chief Complaint: Respiratory Problems Stated Complaint: HARD TIME BREATHING,CAN'T WALK STAGE 4 CANCER ED Provider: Baldemar Abernathy ED Midlevel Provider: Yaron Marte Discharge Problem: Hyponatremia, Abnormal EKG, Lung cancer metastatic to brain, Weakness Discharge Instructions Interventions: ED Discharge Assessment Last Done: 09/21/21 04:32
[2021-09-21 02:04] LABS: Albumin Globulin Ratio 0.8 (0.9-2); Bilirubin,Total 0.8 mg/dl (0.2-1); Globulin 3.8 gm/dl (2.5-4.0); Thyroid Stimulating Hormone 0.378 uIu/ml (0.300-4.500); Total Protein 6.8 gm/dl (6.4-8.2); Troponin I 0.041 ng/ml (0-0.045)
[2021-09-21 02:35] LABS: Appearance Urine Cloudy (Clear); Bacteria Urine Automated Negative (Negative); Bilirubin Urine Negative (Negative); Blood Urine Negative (Negative); Color Urine Yellow; Glucose Urine UA Negative (Negative); Ketones Urine Negative (Negative); Leukocyte Esterase Urine Negative (Negative); Nitrite Urine Negative (Negative); Protein Urine Negative (Negative); RBC Urine Automated 0-4 /hpf (0-4); Specific Gravity Urine 1.015 (1.000-1.030); Urobilinogen Urine Negative (Negative); pH Urine 7.5 (4.5-7.5)
--- NOTE | 2021-09-21 03:24 | History & Physical Report ---
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 on steroid Rx Shortness of breath rule out pulmonary embolism hypertension, elevated secondary discomfort hx PSVT on propranolol, patient bradycardic from last confinement, patient on Aggrenox for presumptive stroke prophylaxis hyperlipidemia on statin Rx Hyperglycemia likely secondary to steroid Rx rule out DM Malnutrition, low BMI Deconditioning past tobacco abuse Medical telemetry Recheck serum sodium after fluid bolus given at the ER Hyponatremia work-up, fluid restriction Nephrology consultation Re: Hyponatremia CT chest PE study Decrease maintenance beta-apurva dose given bradycardia Titrate amlodipine accordingly. Check hemoglobin A1c Nutrition consult Re: Low BMI PT OT eval, patient/family interested in rehab placement if patient eligible DVT prophylaxis. SCDs Re: Brain mets DNR Patient [id number] requesting updates from providers. Family inquiring about Oncology input while patient admitted if patient won't be discharge before her appointment next week. Will ask a.m. provider to contact [facility] oncologist (Dr. Kenny). Shanell Switchgear Repairer, contact #[phone]. Text document was generated using [employer] voice recognition software. It may contain grammatical or spelling errors. Kindly contact undersigned for clarification of any documentation item in question. History of Present Illness Chief Complaint: Shortness of breath, weakness Primary Care Provider: Epifanio Torres MD History obtained from patient, family, and records. Medical history significant for recent diagnosis of lung adenocarcinoma with br ain mets on steroid Rx, hypertension, PSVT as per records, hyperlipidemia, chronic hyponatremia, migraine, past tobacco abuse. Recent confinement September [id number] for nausea vomiting symptoms attributed to cerebral edema from brain mets. Palliative radiation recommended by radiation oncology. Patient discharged on Decadron Rx. Outpatient appointment with oncologist for possible chemotherapy next week. Increasing generalized weakness at home, poor appetite. No bowel movement for 1 week because she has not been eating a lot as per patient. Patient denies abdominal pain. No unusual headache symptoms. Patient feeling more out of breath without chest pain complaints. No unusual cough symptoms. Patient brought by family to the ER for evaluation. 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 Allergies Allergy/AdvReac Type Severity Reaction Status Date / Time shellfish derived Allergy Unknown Unknown Unverified 09/21/21 01:21 Home Medications Medication Instructions Recorded Confirmed Type amlodipine 5 mg tablet (Norvasc) 5 mg PO DAILY 09/09/21 09/21/21 History aspirin 25 mg-dipyridamole 200 mg 1 cap PO BID 09/09/21 09/21/21 History capsule,ext.release 12 hr multiphase atorvastatin 20 mg tablet (Lipitor) 20 mg PO HS 09/09/21 09/21/21 History calcium carbonate 600 mg-vitamin 1 cap PO BID 09/09/21 09/21/21 History D3 5 mcg (200 unit) capsule (Calcium 600 + D(3)) cetirizine 10 mg tablet (Zyrtec) 10 mg PO HS PRN 09/09/21 09/21/21 History famotidine 20 mg tablet 20 mg PO QAM 09/09/21 09/21/21 History magnesium oxide 250 mg PO HS 09/09/21 09/21/21 History potassium chloride 10 mEq 10 meq PO DAILY 09/09/21 09/21/21 History capsule,extended release propranolol 120 mg capsule,24 120 mg PO HS 09/09/21 09/21/21 History hr,extended release (Inderal LA) dexamethasone 4 mg tablet 4 mg PO Q6H #60 tab 09/12/21 09/21/21 Rx rizatriptan 10 mg tablet 10 mg PO UD PRN 09/21/21 09/21/21 History Past Med/Surg History Medical History HTN (hypertension) Hypertension Lung cancer Migraine SVT (supraventricular tachycardia) Surgical History H/O lymph node biopsy H/O: hysterectomy Family History Other Cancer Hypertension Social History Smoking Status: Former smoker Second Hand Exposure: No; Do You Dip or Chew Tobacco: No; Tobacco Cessation Education Requested by Patient: No Hx Alcohol Use: No Hx Substance Use: No Preferred Language: Arabic Communication Ability: Effective Copper Tapper Required: No Beliefs That Will Affect Care: None Current Living Situation: Alone How many Children do You have: 0 Other Information That Helps Us Care for You: No Feels Safe at Home: Yes Safety Concerns: Feels Safe At This Time Assistive Devices: Walker Review of Systems Review of Systems: As per HPI, all 10 systems reviewed, all other ROS negative Physical Exam Physical Exam: GENERAL: Slightly uncomfortable, slow speech, dysphonic, underweight, no respiratory distress SKIN: Normal color, warm HEENT: [place] palpebral conjunctivae, no ptosis, dry buccal mucosa NECK : Supple, no tenderness CHEST : CTA, no tenderness HEART : Bradycardic, no obvious murmurs ABDOMEN: no distention, nontender EXTREMITIES : No LE swelling/tenderness, no other conspicuous deformities noted NEUROLOGIC : Coherent, no facial asymmetry, , gait and stance not assessed Results & Data Results & Data ([facility]) Vital Signs (Past 12 Hours) Vital Signs Temp Pulse Resp BP Pulse Ox 09/21/21 01:30 50 L 19 194/75 H 97 09/21/21 01:24 98 09/20/21 23:58 36.3 C L 56 L 26 H 147/84 H 98 Laboratory Results Laboratory Results WBC 19.45 K/uL (4.8-10.8) H 09/21/21 01:20 RBC 4.64 M/uL (4.2-5.4) 09/21/21 01:20 Hgb 15.5 g/dL (12.0-16.0) 09/21/21 01:20 Hct 43.6 % (37-47) 09/21/21 01:20 MCV 94.0 fL (80-100) 09/21/21 01:20 MCH 33.4 pg (25-34) 09/21/21 01:20 MCHC 35.6 g/dL (32-36) 09/21/21 01:20 RDW Std Deviation 47.6 fL (36.4-46.3) H 09/21/21 01:20 RDW Coeff of Chinyere 13.9 % (11.5-14.5) 09/21/21 01:20 Plt Count 359 K/uL (130-400) 09/21/21 01:20 MPV 9.0 fL (7.4-10.4) 09/21/21 01:20 Immature Gran % (Auto) 0.5 % 09/21/21 01:20 Neut % (Auto) 90.6 % 09/21/21 01:20 Lymph % (Auto) 5.7 % 09/21/21 01:20 [place] % (Auto) 3.1 % 09/21/21 01:20 Eos % (Auto) 0.1 % 09/21/21 01:20 Baso % (Auto) 0.0 % 09/21/21 01:20 Neut # (Auto) 17.62 K/uL (1.4-6.5) H 09/21/21 01:20 Lymph # (Auto) 1.11 K/uL (1.2-3.4) L 09/21/21 01:20 [place]ama # (Auto) 0.61 K/uL (0.11-0.59) H 09/21/21 01:20 Eos # (Auto) 0.01 K/uL (0-0.5) 09/21/21 01:20 Baso # (Auto) 0.00 K/uL (0-0.2) 09/21/21 01:20 Immature Gran # (Auto) 0.10 K/uL (0.00-0.02) H 09/21/21 01:20 PT 10.3 Seconds (9.0-12.0) 09/21/21 01:20 INR 1.0 (0.9-1.1) 09/21/21 01:20 APTT 25.8 Seconds (21.0-31.0) 09/21/21 01:20 PTT Ratio 1.0 09/21/21 01:20 Sodium 122 mmol/L (136-145) L 09/21/21 01:20 Potassium 4.1 mmol/L (3.5-5.1) 09/21/21 01:20 Chloride 90 mmol/L (98-107) L 09/21/21 01:20 Carbon Dioxide 24 mmol/L (21-32) 09/21/21 01:20 Anion Gap 8.0 (3-11) 09/21/21 01:20 BUN 20 mg/dl (7-18) H 09/21/21 01:20 Creatinine 0.56 mg/dl (0.6-1.2) L 09/21/21 01:20 Est Cr Clr Drug Dosing 58.5 ml/min 09/21/21 01:20 Est GFR ( Amer) 111.0 ml/min 09/21/21 01:20 Est GFR (Non-Af Amer) 95.8 ml/min 09/21/21 01:20 BUN/Creatinine Ratio 35.2 (10-20) H 09/21/21 01:20 Glucose 126 mg/dl (70-99) H 09/21/21 01:20 Osmolality 265 mOsm/kg (280-300) L 09/21/21 01:20 Calcium 8.9 mg/dl (8.5-10.1) 09/21/21 01:20 Magnesium 2.4 mg/dl (1.8-2.4) 09/21/21 01:20 Total Bilirubin 0.8 mg/dl (0.2-1) 09/21/21 01:20 AST 14 U/L (15-37) L 09/21/21 01:20 ALT 26 (12-78) 09/21/21 01:20 Alkaline Phosphatase 49 U/L (45-117) 09/21/21 01:20 Troponin I 0.041 ng/ml (0-0.045) 09/21/21 01:20 Total Protein 6.8 gm/dl (6.4-8.2) 09/21/21 01:20 Albumin 3.0 gm/dl (3.4-5.0) L 09/21/21 01:20 Globulin 3.8 gm/dl (2.5-4.0) 09/21/21 01:20 Albumin/Globulin Ratio 0.8 (0.9-2) L 09/21/21 01:20 TSH 0.378 uIu/ml (0.300-4.500) 09/21/21 01:20 Urine Color Yellow 09/21/21 02:00 Urine Appearance Cloudy (Clear) A 09/21/21 02:00 Urine pH 7.5 (4.5-7.5) 09/21/21 02:00 Ur Specific [place] 1.015 (1.000-1.030) 09/21/21 02:00 Urine Protein Negative (Negative) 09/21/21 02:00 Urine Glucose (UA) Negative (Negative) 09/21/21 02:00 Urine Ketones Negative (Negative) 09/21/21 02:00 Urine Blood Negative (Negative) 09/21/21 02:00 Urine Nitrite Negative (Negative) 09/21/21 02:00 Urine Bilirubin Negative (Negative) 09/21/21 02:00 Urine Urobilinogen Negative (Negative) 09/21/21 02:00 Ur Leukocyte Esterase Negative (Negative) 09/21/21 02:00 Urine WBC (Auto) 1-5 /hpf (0-5) 09/21/21 02:00 Urine RBC (Auto) 0-4 /hpf (0-4) 09/21/21 02:00 U Hyaline Cast (Auto) 1-5 /lpf (0-5) 09/21/21 02:00 U Epithel Cells (Auto) 5-10 /lpf (0-5) H 09/21/21 02:00 Urine Bacteria (Auto) Negative (Negative) 09/21/21 02:00 Ur Random Sodium 31 mmol/L 09/21/21 02:00 SARS-CoV-2, RNA, NAAT NEGATIVE (NEGATIVE) 09/21/21 01:[address] head initial read: We demonstrated slightlyhyperdense rounded masses noted bilaterally, one in the left parafalcine region measuring 1.4 x 1.4 cmand 1 cmin the right periventricular region likelyascending within the right posterior lateral ventricle and measuring maximum3.0 x 2.7 cm. There is surrounding vasogenic edema, overall no significant change in the interval. Underlying microangiopathic changes present. Bilateral paranasal sinuses and mastoids are clear. Chest x-ray : Hyperinflation, left upper lobe mass EKG as per my interpretation : Rate 50, sinus bradycardia, normal axis, diffuse T wave abnormalities
[2021-09-21] MEDS ORDERED: POLYETHYLENE (MIRALAX) 17 GM PACK PO STA (03:34)
[2021-09-21] MEDS ORDERED: OPTIRAY 320 125ml IV ONE (04:24)
[2021-09-21] MEDS ORDERED: CETIRIZINE HCL 10 MG TABLET PO PRN (04:45)
[2021-09-21] MEDS ORDERED: PROMETHAZINE HCL 6.25 MG in SODIUM CHLORIDE 0.9% 50 ML IV PRN (04:45)
[2021-09-21] MEDS ORDERED: ALBUT/IPRATROP 3MG/0.5MG NEB 3 ML VIAL NEB PRN (04:45)
[2021-09-21] MEDS ORDERED: oxyCODONE HCL IR 5 MG TAB (IMMEDIATE RELEASE) PO PRN (04:45)
[2021-09-21] MEDS ORDERED: POLYETHYLENE (MIRALAX) 17 GM PACK PO PRN (04:45)
[2021-09-21] MEDS: DOCUSATE SODIUM/SENNA 50/8.6MG TAB PO SCH (05:06)
[2021-09-21] MEDS: dexAMETHasone 4 MG TAB PO SCH ×4 (05:06→23:10)
[2021-09-21 08:47] LABS: Troponin I 0.045 ng/ml (0-0.045)
--- NOTE | 2021-09-21 09:05 | CT Scan Report ---
CHEST CTA for PULMONARY ARTERIES CT DOSE: 254.35 mGy.cm HISTORY: Shortness of breath. TECHNIQUE: Multiaxial CT images of the chest were performed following the intravenous administration of contrast to evaluate the pulmonary arteries. Maximal intensity projection images were also obtaine d. A dose lowering technique was utilized adhering to the principles of ALARA. COMPARISON STUDY: Outside hospital chest CT 09/01/2021. FINDINGS: Limited views of the upper abdomen demonstrate a normal liver, spleen, and adrenal glands. The thyroid gland enhances normally. Calcified nodules again noted within the breasts. No pleural or pericardial effusions. The heart is borderline enlarged. There is 1.2 cm left supra clavicular lymph node, unchanged. There is also persistent left AP window/hilar lymphadenopathy with the dominant lymp h node measuring 1.7 cm. No right hilar lymphadenopathy. Moderate calcified plaque within the thoraci c aorta. No evidence for an aortic dissection. The thoracic aorta is normal in caliber. No filling de fects within the pulmonary arteries to suggest a pulmonary embolus. No suspicious lytic are blastic o sseous lesions. No pneumothorax. Moderate emphysema. Stable somewhat linear density within the right lung apex measuring up to 5 mm in thickness. Redemonstration of the 3.8 cm lobular mass within the le ft upper lobe posteriorly. This abuts the pleural surface. This is similar to the prior study. There is an additional smaller spiculated 1.7 cm nodule within the superior segment of the left lower lobe. This is also not significantly changed. There is a 5 mm subpleural nodule within the superior segmen t of the left lower lobe abutting the major fissure. IMPRESSION: 1. No evidence for pulmonary embolus. 2. Left lung masses/nodules as described above are again noted and are consistent with the patient's known malignancy. 3. Redemonstration of the left supraclavicular, AP window, left hilar lymphadenopathy. 4. Emphysema. ACT 112: Negative or not required by law. Electronically signed by: Mendoza Booker M.D. 09/21/2021 9:04 AM
--- NOTE | 2021-09-21 09:39 | CT Scan Report ---
CT OF THE HEAD WITHOUT CONTRAST CLINICAL HISTORY: weakness. hx lung mets to brain COMPARISON STUDY: Head CT September 09, 2021. CT DOSE: 537.48 mGy.cm TECHNIQUE: Helical axial images of the head were obtained without IV contrast. Automated exposure con trol was utilized for the study. A dose lowering technique was utilized adhering to the principles o f ALARA. FINDINGS: No acute intracranial hemorrhage is present. A 2.8 x 2.5 cm hypodense periventricular mass encasing the temporal horn and atrium of the right lateral ventricle is noted. This contains calcifie d material which could reflect choroid plexus. This is unchanged since prior head CT of September 09, 2021. An additional hyperdense mass measuring 1.5 x 1.4 cm within the left body of the corpus callosu m is also unchanged. Associated vasogenic edema similar to prior exam. Ventricular system is stable. Basal cisterns are patent. There are no findings to suggest acute dural sinus thrombosis or acute ter ritorial infarct. IMPRESSION: No change in two hyperdense intra-axial lesions since head CT of September 09, 2021. Thes e are consistent with a neoplastic process and would be consistent with the provided history of metas tatic disease. Stable vasogenic edema. No change in appearance of the brain. ACT 112: Negative or not required by law. Electronically signed by: Chad Trevino M.D. 09/21/2021 9:38 AM
[2021-09-21] MEDS: amLODIPine BESYLATE 5 MG TAB PO SCH (09:49)
[2021-09-21] MEDS: DIPYRIDAMOLE/ASPIRIN CAP PO SCH ×2 (09:49→21:10)
[2021-09-21] MEDS: FAMOTIDINE 20 MG TAB PO SCH (09:49)
[2021-09-21] MEDS: CALCIUM 600MG + VIT D 400 IU TAB PO SCH ×2 (09:49→21:10)
--- NOTE | 2021-09-21 10:19 | XRay Report ---
XR chest 1V portable CLINICAL HISTORY: Shortness of breath. Lung cancer. COMPARISON STUDY: Chest radiograph September 09, [address] September 01, 2021. FINDINGS: Lung volumes are normal. There is no pneumothorax or pleural effusion. Note is again made o f a left upper lobe mass measuring approximately 4.3 cm. There is a 1.8 cm suspicious lesion within t he superior segment of the left lower lobe. Calcified densities within the left breast are likely bethany ign. Cardiac size is normal. Mediastinal contours are normal. There is no evidence for pulmonary waqar a. IMPRESSION: 1. No acute cardiopulmonary findings. 2. Redemonstration of a 4.3 cm left upper lobe mass and a 1.8 cm nodule within the superior segment of the left lower lobe consistent with a neoplastic process. ACT 112: Negative or not required by law. Electronically signed by: Chad Trevino M.D. 09/21/2021 10:18 AM
--- NOTE | 2021-09-21 11:45 | Nephrology Consultation ---
Date of Consultation September 21, 2021 Assessment & Plan (1) Hyponatremia: Patient with hyponatremia likely due to hypovolemia. Patient reports poor p.o. intake for several days prior to hospitalization. Admission sodium of 122 which increased to 129 after a liter of normal saline. Urine osmolality was 423. Urine sodium was high at 31 but likely taken as patient was receiving normal saline. Target rate of correction is 6-8 points in 24 hours -No further IV fluids -Monitor input output -No need for fluid restriction at this point. -Monitor sodium at least every 8 hourly History of Present Illness Reason for Consultation: Hyponatremia Requesting Physician: Graham Palacios MD Attending Physician: Graham Palacios MD History of Present Illness This is 60-year-old female with history of hypertension, hyperlipidemia, lung cancer with brain metastases on Decadron and chronic hyponatremia with baseline sodium in the low 130s who was admitted with weakness and poor appetite. She denied any nausea or vomiting. She has been struggling to eat anything. Recently hospitalized 09/09-09/12 with nausea vomiting. Sodium on discharge was 134. This time patient comes in with a sodium of 122. She received a liter of normal saline. Her urine osmolality was 423 and urine sodium of 31 likely taking as patient was receiving normal saline. Her sodium this morning is up to 129. She feels better. No shortness of breath. No leg swelling. No nausea or vomiting this morning as well. Allergies Allergy/AdvReac Type Severity Reaction Status Date / Time shellfish derived Allergy Unknown Unknown Unverified 09/21/21 01:21 Home Medications Medication Instructions Recorded Confirmed Type amlodipine 5 mg tablet (Norvasc) 5 mg PO DAILY 09/09/21 09/21/21 History aspirin 25 mg-dipyridamole 200 mg 1 cap PO BID 09/09/21 09/21/21 History capsule,ext.release 12 hr multiphase atorvastatin 20 mg tablet (Lipitor) 20 mg PO HS 09/09/21 09/21/21 History calcium carbonate 600 mg-vitamin 1 cap PO BID 09/09/21 09/21/21 History D3 5 mcg (200 unit) capsule (Calcium 600 + D(3)) cetirizine 10 mg tablet (Zyrtec) 10 mg PO HS PRN 09/09/21 09/21/21 History famotidine 20 mg tablet 20 mg PO QAM 09/09/21 09/21/21 History magnesium oxide 250 mg PO HS 09/09/21 09/21/21 History potassium chloride 10 mEq 10 meq PO DAILY 09/09/21 09/21/21 History capsule,extended release propranolol 120 mg capsule,24 120 mg PO HS 09/09/21 09/21/21 History hr,extended release (Inderal LA) dexamethasone 4 mg tablet 4 mg PO Q6H #60 tab 09/12/21 09/21/21 Rx rizatriptan 10 mg tablet 10 mg PO UD PRN 09/21/21 09/21/21 History Patient History Medical History HTN (hypertension) Hypertension Lung cancer Migraine SVT (supraventricular tachycardia) Surgical History H/O lymph node biopsy H/O: hysterectomy Family History Other Cancer Hypertension Social History Smoking Status: Former smoker Second Hand Exposure: No; Do You Dip or Chew Tobacco: No; Tobacco Cessation Education Requested by Patient: No Hx Alcohol Use: No Hx Substance Use: No Preferred Language: Monegasque Communication Ability: Effective Solar Electric Installer Required: No Beliefs That Will Affect Care: None Current Living Situation: Alone How many Children do You have: 0 Other Information That Helps Us Care for You: No Feels Safe at Home: Yes Safety Concerns: Feels Safe At This Time Assistive Devices: Walker Review of Systems Review of Systems: All other systems were reviewed and negative except as noted in HPI Physical Exam Physical Exam: General exam: Appears comfortable, no acute distress. Cachectic HEENT: Pupils are equal and reactive to light Neck: No JVD, neck is supple trachea is midline Respiratory system: Clear breath sounds bilaterally. Gastrointestinal: Abdomen is soft, non distended, non tender, bowel sounds are present CVS: Regular rate and rhythm. No murmurs, rubs or gallops Musculoskeletal: No joint or muscle tenderness Extremities: Non tender, no edema, peripheral pulses are present Neuro: Oriented, no tremors, no focal neurological deficits Skin: No rashes Results & Data ([facility]) Vital Signs (Past 12 Hours) Vital Signs Temp Pulse Pulse Resp BP BP Pulse Ox 09/21/21 06:28 54 L 16 136/87 98 09/21/21 04:56 09/21/21 04:40 36.4 C L 60 20 186/89 H 96 09/21/21 03:00 54 L 20 120/82 98 09/21/21 01:30 50 L 19 194/75 H 97 09/21/21 01:24 98 09/20/21 23:58 36.3 C L 56 L 26 H 147/84 H 98 Pulse Ox 09/21/21 06:28 09/21/21 04:56 99 09/21/21 04:40 09/21/21 03:00 09/21/21 01:30 09/21/21 01:24 09/20/21 23:58 Laboratory Results 09/21/21 07:57 09/21/21 09/21/21 01:20 01:20 WBC 19.45 H RBC 4.64 MCV 94.0 MCH 33.4 MCHC 35.6 RDW Std Deviation 47.6 H RDW Coeff of Chinyere 13.9 Plt Count 359 MPV 9.0 Albumin 3.0 L
--- NOTE | 2021-09-21 12:41 | Cardiology Consultation ---
Date of Consultation September 21, 2021 Assessment & Plan (1) Abnormal electrocardiogram [ECG] [EKG]: (2) Hyponatremia: (3) Lung cancer metastatic to brain: EKG performed today 09/21/2021 at 1:11 AM revealed sinus bradycardia at 40 bpm, with poor R wave progression anterior precordial leads, and marked ST-T wave changes with diffuse deep symmetrical T wave inversions. These findings are new compared to the previous tracing performed at [facility] dated 09/09/2021. The differential diagnosis of the EKG includes diffuse myocardial ischemia, or neuropathic changes from intracranial hemorrhage, or vasogenic edema. The patient has a history of metastatic disease to the brain with findings of stable vasogenic edema on CT today. She is already on dexamethasone. Review of her CT angiogram images reveals coronary artery calcification. As noted she does not have any angina. We will proceed with resting echocardiogram. Her hyponatremia is also likely related to her adenocarcinoma process. Recommend ongoing assessment and treatment for metastatic disease to the brain including ongoing dexamethasone treatment and evaluation by radiation oncology. Case discussed with Dr Palacios by phone. History of Present Illness Attending Physician: Graham Palacios MD History of Present Illness Fannie Almeida is a 66-year-old female seen in cardiology consultation in ED room D2B per the request of Dr Palacios for the evaluation of abnormal EKG. The patient has a past history of supraventricular tachycardia and takes propranolol, she does not follow with cardiology on a regular basis, with her symptoms having been controlled for years without recurrence. Her recent history dates back to about 2 months ago, when a CT of the brain was performed within the [facility] on 08/20/2021 with patient found to have a 2.6 cm hyperdense mass in the posterior body of the right ventricle consistent with metastatic disease. She went on to have an MRI of the brain, and then a CT of the chest and abdomen and pelvis. Chest CT 09/01/2021 revealed a 4 x 3.9 x 4.6 left upper lobe lung mass consistent with neoplasm. Supraclavicular lymph node biopsy soon thereafter provided diagnosis of adenocarcinoma. She was seen by neurosurgery at [facility] on 09/01/2021, and was felt that she likely has lung cancer with metastatic disease to the brain. She has been placed on dexamethasone, with plans for upcoming follow-up with Dr. Kenny of medical oncology, and a recent referral was placed to radiation oncology, but I do not believe the patient has seen them yet. The patient presented to the emergency department with what she describes to me as being profound generalized weakness rather than gross discoordination. She has been dealing with headaches, but states that the headache is well controlled at present and to worse than her typical baseline. At the time my assessment she was comfortable and eating her noontime meal. She denies any chest discomfort. Allergies Allergy/AdvReac Type Severity Reaction Status Date / Time shellfish derived Allergy Unknown Unknown Unverified 09/21/21 01:21 Home Medications Medication Instructions Recorded Confirmed Type amlodipine 5 mg tablet (Norvasc) 5 mg PO DAILY 09/09/21 09/21/21 History aspirin 25 mg-dipyridamole 200 mg 1 cap PO BID 09/09/21 09/21/21 History capsule,ext.release 12 hr multiphase atorvastatin 20 mg tablet (Lipitor) 20 mg PO HS 09/09/21 09/21/21 History calcium carbonate 600 mg-vitamin 1 cap PO BID 09/09/21 09/21/21 History D3 5 mcg (200 unit) capsule (Calcium 600 + D(3)) cetirizine 10 mg tablet (Zyrtec) 10 mg PO HS PRN 09/09/21 09/21/21 History famotidine 20 mg tablet 20 mg PO QAM 09/09/21 09/21/21 History magnesium oxide 250 mg PO HS 09/09/21 09/21/21 History potassium chloride 10 mEq 10 meq PO DAILY 09/09/21 09/21/21 History capsule,extended release propranolol 120 mg capsule,24 120 mg PO HS 09/09/21 09/21/21 History hr,extended release (Inderal LA) dexamethasone 4 mg tablet 4 mg PO Q6H #60 tab 09/12/21 09/21/21 Rx rizatriptan 10 mg tablet 10 mg PO UD PRN 09/21/21 09/21/21 History Patient History Medical History HTN (hypertension) Hypertension Lung cancer Migraine SVT (supraventricular tachycardia) Surgical History H/O lymph node biopsy H/O: hysterectomy Family History Other Cancer Hypertension Social History Smoking Status: Former smoker Second Hand Exposure: No; Do You Dip or Chew Tobacco: No; Tobacco Cessation Education Requested by Patient: No Hx Alcohol Use: No Hx Substance Use: No Preferred Language: Yakut Communication Ability: Effective Disk Recordist Required: No Beliefs That Will Affect Care: None Current Living Situation: Alone How many Children do You have: 0 Other Information That Helps Us Care for You: No Feels Safe at Home: Yes Safety Concerns: Feels Safe At This Time Assistive Devices: Walker Review of Systems Review of Systems: All systems reviewed & are unremarkable except as noted in HPI & below Physical Exam Constitutional: + cachectic Respiratory: normal respiratory effort, lungs clear to auscultation Cardiovascular: RRR, no murmur, no edema Gastrointestinal (Abdomen): normal bowel sounds, soft, nontender, no hepatosplenomegaly Neurologic: PERRL, EOMI, accommodation nl, no face palsy, no dysarthria Results & Data ([facility]) Vital Signs (Past 12 Hours) Vital Signs Temp Pulse Pulse Resp BP BP Pulse Ox 09/21/21 06:28 54 L 16 136/87 98 09/21/21 04:56 09/21/21 04:40 36.4 C L 60 20 186/89 H 96 09/21/21 03:00 54 L 20 120/82 98 09/21/21 01:30 50 L 19 194/75 H 97 09/21/21 01:24 98 Pulse Ox 09/21/21 06:28 09/21/21 04:56 99 09/21/21 04:40 09/21/21 03:00 09/21/21 01:30 09/21/21 01:24 Laboratory Results Cardiac Enzymes 09/21/21 09/21/21 Range/Units 01:20 07:57 AST 14 L (15-37) U/L Troponin I 0.041 0.045 (0-0.045) ng/ml Coagulation 09/21/21 Range/Units 01:20 PT 10.3 (9.0-12.0) Seconds APTT 25.8 (21.0-31.0) Seconds CBC 09/21/21 Range/Units 01:20 WBC 19.45 H (4.8-10.8) K/uL RBC 4.64 (4.2-5.4) M/uL Hgb 15.5 (12.0-16.0) g/dL Hct 43.6 (37-47) % Plt Count 359 (130-400) K/uL Neut # (Auto) 17.62 H (1.4-6.5) K/uL Lymph # (Auto) 1.11 L (1.2-3.4) K/uL [place] # (Auto) 0.61 H (0.11-0.59) K/uL Eos # (Auto) 0.01 (0-0.5) K/uL Baso # (Auto) 0.00 (0-0.2) K/uL Comprehensive Metabolic Panel 09/21/21 09/21/21 Range/Units 01:20 07:57 Sodium 122 L 129 L D (136-145) mmol/L Potassium 4.1 (3.5-5.1) mmol/L Chloride 90 L (98-107) mmol/L Carbon Dioxide 24 (21-32) mmol/L BUN 20 H (7-18) mg/dl Creatinine 0.56 L (0.6-1.2) mg/dl Glucose 126 H (70-99) mg/dl Calcium 8.9 (8.5-10.1) mg/dl AST 14 L (15-37) U/L ALT 26 (12-78) Alkaline Phosphatase 49 (45-117) U/L Total Protein 6.8 (6.4-8.2) gm/dl Albumin 3.0 L (3.4-5.0) gm/dl Intake and Output 09/20/21 09/21/21 09/21/21 22:59 06:59 14:59 Intake Total 1000 / 1000 360 / 360 Balance 1000 / 1000 360 / 360 Intake: IV 1000 / 1000 Sodium Chloride 0.9% 1000ML 1, 1000 / 1000 000 ml @ 999 mls/hr IV .Q1H1M [facility] Rx#:[id number] Oral 360 / 360 Other: # Unmeasured Voids 1 Weight 38.555 kg Weight Measurement Method Stated by Patient Diagnostic Findings Chest X-Ray 09/21/21 00:05 XR chest 1V portable CLINICAL HISTORY: Shortness of breath. Lung cancer. COMPARISON STUDY: Chest radiograph September 09, [address] September 01, 2021. FINDINGS: Lung volumes are normal. There is no pneumothorax or pleural effusion. Note is again made of a left upper lobe mass measuring approximately 4.3 cm. There is a 1.8 cm suspicious lesion within the superior segment of the left lower lobe. Calcified densities within the left breast are likely benign. Cardiac size is normal. Mediastinal contours are normal. There is no evidence for pulmonary edema. IMPRESSION: 1. No acute cardiopulmonary findings. 2. Redemonstration of a 4.3 cm left upper lobe mass and a 1.8 cm nodule within the superior segment of the left lower lobe consistent with a neoplastic pro cess. ACT 112: Negative or not required by law. Electronically signed by: Chad Trevino M.D. 09/21/2021 10:[address] 09/21/21 01:25 CT OF THE HEAD WITHOUT CONTRAST CLINICAL HISTORY: weakness. hx lung mets to brain COMPARISON STUDY: Head CT September 09, 2021. CT DOSE: 537.48 mGy.cm TECHNIQUE: Helical axial images of the head were obtained without IV contrast. Automated exposure control was utilized for the study. A dose lowering technique was utilized adhering to the principles of ALARA. FINDINGS: No acute intracranial hemorrhage is present. A 2.8 x 2.5 cm hypodense periventricular mass encasing the temporal horn and atrium of the right lateral ventricle is noted. This contains calcified material which could reflect choroid plexus. This is unchanged since prior head CT of September 09, 2021. An additional hyperdense mass measuring 1.5 x 1.4 cm within the left body of the corpus callosum is also unchanged. Associated vasogenic edema similar to prior exam. Ventricular system is stable. Basal cisterns are patent. There are no findings to suggest acute dural sinus thrombosis or acute territorial infarct. IMPRESSION: No change in two hyperdense intra-axial lesions since head CT of September 09, 2021. These are consistent with a neoplastic process and would be consistent with the provided history of metastatic disease. Stable vasogenic edema. No change in appearance of the brain. ACT 112: Negative or not required by law. Electronically signed by: Chad Trevino M.D. 09/21/2021 9:38 AM Chest CTA 09/21/21 03:18 CHEST CTA for PULMONARY ARTERIES CT DOSE: 254.35 mGy.cm HISTORY: Shortness of breath. TECHNIQUE: Multiaxial CT images of the chest were performed following the i ntravenous administration of contrast to evaluate the pulmonary arteries. Maximal intensity projection images were also obtained. A dose lowering technique was utilized adhering to the principles of ALARA. COMPARISON STUDY: Outside hospital chest CT 09/01/2021. FINDINGS: Limited views of the upper abdomen demonstrate a normal liver, spleen, and adrenal glands. The thyroid gland enhances normally. Calcified nodules again noted within the breasts. No pleural or pericardial effusions. The heart is borderline enlarged. There is 1.2 cm left supra clavicular lymph node, unchanged. There is also persistent left AP window/hilar lymphadenopathy with the dominant lymph node measuring 1.7 cm. No right hilar lymphadenopathy. Moderate calcified plaque within the thoracic aorta. No evidence for an aortic dissection. The thoracic aorta is normal in caliber. No filling defects within the pulmonary arteries to suggest a pulmonary embolus. No suspicious lytic are blastic osseous lesions. No pneumothorax. Moderate emphysema. Stable somewhat linear density within the right lung apex measuring up to 5 mm in thickness. Redemonstration of the 3.8 cm lobular mass within the left upper lobe posteriorl y. This abuts the pleural surface. This is similar to the prior study. There is an additional smaller spiculated 1.7 cm nodule within the superior segment of the left lower lobe. This is also not significantly changed. There is a 5 mm subpleural nodule within the superior segment of the left lower lobe abutting the major fissure. IMPRESSION: 1. No evidence for pulmonary embolus. 2. Left lung masses/nodules as described above are again noted and are consistent with the patient's known malignancy. 3. Redemonstration of the left supraclavicular, AP window, left hilar lymphadenopathy. 4. Emphysema. ACT 112: Negative or not required by law. Electronically signed by: Mendoza Booker M.D. 09/21/2021 9:04 AM
--- NOTE | 2021-09-21 13:06 | Electrocardiogram Report ---
Test Reason : Blood Pressure : / mmHG Vent. Rate : 048 BPM Atrial Rate : 048 BPM P-R Int : 118 ms QRS Dur : 094 ms QT Int : 524 ms P-R-T Axes : 082 046 246 degrees QTc Int : 468 ms Poor data quality, interpretation may be adversely affected Sinus bradycardia Anteroseptal (cited on or before 09-SEP-2021) Marked T-wave abnormality, consider inferolateral ischemia Abnormal ECG When compared with ECG of 09-SEP-2021 13:43, Questionable change in initial forces of Anterior leads Inverted T waves have replaced nonspecific T wave abnormality in Inferior leads T wave inversion more evident in Anterior leads QT has lengthened Confirmed by Sidney Brock ([id number]) on 09/21/2021 1:06:31 PM Referred By: REFERRED SELF Confirmed By:Sidney Brock
--- NOTE | 2021-09-21 15:54 | Hospitalist Progress Note ---
Date of Service September 21, 2021 Assessment & Plan (1) Hyponatremia: Plan: Acute on chronic hyponatremia Presented with sodium levels 122 Likely secondary to hypovolemia given very poor oral intake Urine osmolality 423, urine sodium 31 Received gentle IV fluids Sodium levels improved to 129 Appreciate nephrology input Monitor sodium levels Abnormal foster winder ST-T wave changes Denies any anginal symptoms Troponin negative ? EKG findings secondary to intracranial process -ECHO: Mild concentric LVH. Left ventricle wall motion is normal. Left ventricle systolic function is normal. EF 65 to 70%. Aortic valve sclerosis mild, without significant aortic valve stenosis. Grade 1 diastolic dysfunction. Appreciate cardiology input Metastatic lung adenocarcinoma with brain mets --CT Brain:No change in two hyperdense intra-axial lesions since head CT of September 09, 2021. These are consistent with a neoplastic process and would be consistent with the provided history of metastatic disease. Stable vasogenic edema. No change in appearance of the brain. -Reports having blurry vision since about 1 month -Continue Decadron Plan for radiation therapy tomorrow Appreciate radiation oncology input Patient to establish with [facility] oncology for chemotherapy Leukocytosis Likely secondary to steroids Hypertension Slightly elevated Continue amlodipine, propranolol H/O PSVT on propranolol Patient bradycardic from last confinement, patient on Aggrenox for presumptive stroke prophylaxis Propranolol dose decreased from 125 g to 80 mg given bradycardia Hyperlipidemia on statin Hyperglycemia likely secondary to steroid Rx HbA1c pending Severe protein calorie malnutrition BMI 15.1 Nutrition consult Past tobacco abuse Disposition PT OT prior to discharge CODE STATUS DNI DNR DVT prophylaxis SCDs Re: brain mets Admission and Anticipated Discharge Date Admission Date: September 21, 2021 Subjective Patient is seen and examined bedside States having mild headache Generalized weakness slightly better when compared to the time of admission Appetite remains poor Denies any chest pain, dyspnea, dizziness, nausea Discussed with cardiology and radiation oncology today Review of Systems Review of Systems: All systems reviewed & are unremarkable except as noted in Subjective Physical Exam Physical Exam: Physical Exam: Vitals signs as noted above General Appearance: Thin, frail, chronically ill appearing Head: normocephalic, Atraumatic Eyes: normal inspection, EOMI Neck: supple, Trachea midline Respiratory/Chest: Decreased breath sounds, CTA Cardiovascular: S1, S2, No murmur Abdomen/GI:Soft, Non tender, Bowel sounds present Extremities/Musculoskeletal:normal inspection, no edema Neurologic/Psych:AAOX3, grossly no focal neurological deficits Skin: normal color, warm Results & Data Results & Data ([facility]) Vital Signs (Past 12 Hours) Vital Signs Temp Pulse Resp BP Pulse Ox Pulse Ox 09/21/21 14:47 73 16 149/84 H 97 09/21/21 06:28 54 L 16 136/87 98 09/21/21 04:56 99 09/21/21 04:40 36.4 C L 60 20 186/89 H 96 Laboratory Results Short CBC 09/21/21 Range/Units 01:20 WBC 19.45 H (4.8-10.8) K/uL Hgb 15.5 (12.0-16.0) g/dL Hct 43.6 (37-47) % Plt Count 359 (130-400) K/uL BMP 09/21/21 09/21/21 01:20 07:57 Sodium 122 L 129 L D Potassium 4.1 Chloride 90 L Carbon Dioxide 24 BUN 20 H Creatinine 0.56 L Glucose 126 H Calcium 8.9 Cardiac Enzymes 09/21/21 09/21/21 Range/Units 01:20 07:57 Troponin I 0.041 0.045 (0-0.045) ng/ml Liver Function 09/21/21 Range/Units 01:20 Total Bilirubin 0.8 (0.2-1) mg/dl AST 14 L (15-37) U/L ALT 26 (12-78) Alkaline Phosphatase 49 (45-117) U/L Albumin 3.0 L (3.4-5.0) gm/dl Urine 09/21/21 Range/Units 02:00 Urine Color Yellow Urine Appearance Cloudy A (Clear) Urine pH 7.5 (4.5-7.5) Ur Specific [place] 1.015 (1.000-1.030) Urine Protein Negative (Negative) Urine Glucose (UA) Negative (Negative)
[2021-09-21 16:26] LABS: Troponin I 0.06 ng/ml (0-0.045)
[2021-09-21] MEDS: LORazepam 0.5 MG TAB PO PRN (16:30)
[2021-09-21] MEDS: ATORVASTATIN 20 MG TAB PO SCH (21:10)
[2021-09-21] MEDS: PROPRANOLOL HCL LA 80 MG CAPCR PO SCH (21:11)
[2021-09-22] MEDS: dexAMETHasone 4 MG TAB PO SCH ×3 (06:22→18:22)
[2021-09-22 07:29] LABS: Estimated Average Glucose 137 mg/dl; Hemoglobin A1C 6.4 % (4.5-5.6)
[2021-09-22] MEDS: CALCIUM 600MG + VIT D 400 IU TAB PO SCH ×2 (08:12→20:17)
[2021-09-22] MEDS: amLODIPine BESYLATE 5 MG TAB PO SCH (08:12)
[2021-09-22] MEDS: DIPYRIDAMOLE/ASPIRIN CAP PO SCH ×2 (08:13→20:18)
[2021-09-22] MEDS: DOCUSATE SODIUM/SENNA 50/8.6MG TAB PO SCH (08:13)
[2021-09-22] MEDS: FAMOTIDINE 20 MG TAB PO SCH (08:13)
--- NOTE | 2021-09-22 08:58 | Communication Note ---
Date of Service: September 22, 2021 Patient has already been seen in consultation previously. Patient was seen at bedside today. Patient would like to hold off on SBRT for today. We will reevaluate tomorrow. I have spoken to the hospitalist who is aware. Please call us any further questions or concerns.
[2021-09-22 09:43] LABS: Basophils # (auto) 0.01 K/uL (0-0.2); Basophils % (auto) 0.1 %; Hematocrit (blood only) 45.3 % (37-47); Hemoglobin 15.7 g/dL (12.0-16.0); Immature Granulocytes # (auto) 0.14 K/uL (0.00-0.02); Immature Granulocytes % (auto) 0.7 %; Lymphocytes # (auto) 0.89 K/uL (1.2-3.4); Lymphocytes % (auto) 4.5 %; Mean Corpuscular Hemoglobin 33.1 pg (25-34); Mean Corpuscular Hgb Conc 34.7 g/dL (32-36); Mean Corpuscular Volume 95.4 fL (80-100); Mean Platelet Volume 9.4 fL (7.4-10.4); Monocytes # (auto) 0.42 K/uL (0.11-0.59); Monocytes % (auto) 2.1 %; Neutrophils # (auto) 18.14 K/uL (1.4-6.5); Neutrophils % (auto) 92.6 %; Platelet Count 322 K/uL (130-400); RDW Coefficient of Variation 14.6 % (11.5-14.5); RDW Standard Deviation 50.8 fL (36.4-46.3); Red Blood Count 4.75 M/uL (4.2-5.4)
[2021-09-22 10:25] LABS: BUN Creatinine Ratio 39.9 (10-20); Calcium 9.4 mg/dl (8.5-10.1); Creatinine Clr Calc Pharmacy 52.9 ml/min; Est GFR (African American) 107.4 ml/min; Est GFR (Non-African American) 92.7 ml/min; Potassium 3.4 mmol/L (3.5-5.1)
[2021-09-22] MEDS ORDERED: POTASSIUM CHLORIDE CRTAB 20 MEQ TABCR PO STA (13:16)
--- NOTE | 2021-09-22 13:17 | Cardiology Progress Note ---
Date of Service September 22, 2021 Assessment & Plan (1) Abnormal electrocardiogram [ECG] [EKG]: (2) Hyponatremia: (3) Lung cancer metastatic to brain: Plan: Echocardiogram with reassuring findings of normal LVEF and normal wall motion. Minimal elevation in troponin I, however has no symptoms suggestive of angina. BP well controlled. EKG abnormality consistent with neuropathic process. Continue dexamethasone. Replace potassium (3.4 mmol/l this am) Patient seen by radiation oncology this am. Admission and Anticipated Discharge Date Admission Date: September 21, 2021 Subjective Pt seen in follow up . Notes ongoing headache, improved with recent medication. Telemetry reveals SR in the 60s with ongoing T wave changes. Physical Exam Physical Exam: Temp Pulse Resp BP Pulse Ox 36.4 C L 65 17 112/71 95 09/22/21 10:51 09/22/21 10:51 09/22/21 10:51 09/22/21 10:51 09/22/21 10:51 Constitutional: + cachectic Respiratory: normal respiratory effort, lungs clear to auscultation Cardiovascular: RRR, no murmur, no edema Gastrointestinal (Abdomen): normal bowel sounds, soft, nontender, no hep atosplenomegaly Neurologic: PERRL, EOMI, accommodation nl, no face palsy, no dysarthria Results & Data ([facility]) Vital Signs (Past 12 Hours) Vital Signs Temp Pulse Pulse Resp BP Pulse Ox 09/22/21 10:51 36.4 C L 65 17 112/71 95 09/22/21 08:10 61 09/22/21 07:57 36.4 C L 57 L 17 129/78 95 09/22/21 03:29 36.3 C L 68 16 135/84 96 Laboratory Results Cardiac Enzymes 09/21/21 09/21/21 Range/Units 15:14 20:44 Troponin I 0.060 H* 0.065 H* (0-0.045) ng/ml CBC 09/22/21 Range/Units 09:00 WBC 19.60 H (4.8-10.8) K/uL RBC 4.75 (4.2-5.4) M/uL Hgb 15.7 (12.0-16.0) g/dL Hct 45.3 (37-47) % Plt Count 322 (130-400) K/uL Neut # (Auto) 18.14 H (1.4-6.5) K/uL Lymph # (Auto) 0.89 L (1.2-3.4) K/uL [place] # (Auto) 0.42 (0.11-0.59) K/uL Eos # (Auto) 0.00 (0-0.5) K/uL Baso # (Auto) 0.01 (0-0.2) K/uL Comprehensive Metabolic Panel 09/21/21 09/22/21 Range/Units 15:14 09:00 Sodium 129 L 128 L (136-145) mmol/L Potassium 3.4 L D (3.5-5.1) mmol/L Chloride 95 L (98-107) mmol/L Carbon Dioxide 23 (21-32) mmol/L BUN 25 H (7-18) mg/dl Creatinine 0.62 (0.6-1.2) mg/dl Glucose 168 H (70-99) mg/dl Calcium 9.4 (8.5-10.1) mg/dl Intake and Output 09/21/21 09/22/21 09/22/21 22:59 06:59 14:59 Intake Total 200 / 920 50.25 / 50.25 Balance 200 / 920 50.25 / 50.25 Intake: IV 50.25 / 50.25 Promethazine HCl 6.25 mg In 50.25 / 50.25 Sodium Chloride 0.9% 50 ml @ 201 mls/hr IV Q6H PRN Rx#: [id number] Oral 200 / 920 Other: Weight 38.555 kg Patient Weight 09/23/21 06:59 Weight 38.555 kg
--- NOTE | 2021-09-22 15:37 | Communication Note ---
Date of Service: September 22, 2021 Patient sister, Shanell, requested conversation regarding patient's care. After long and lengthy discussion regarding options and potential prognosis, the patient has opted for consideration of hospice. I believe this is reasonable given the patient's overall prognosis and performance status. The patient and her sister will contact us if they change her mind however I believe that they will proceed forward with hospice. I have communicated this to Dr. Palacios.
[2021-09-22] MEDS ORDERED: POTASSIUM CHLORIDE CRTAB 20 MEQ TABCR PO ONE (16:00)
--- NOTE | 2021-09-22 17:18 | Nephrology Progress Note ---
Date of Service September 22, 2021 Assessment & Plan (1) Hyponatremia: Plan: presumed hypovolemic hyponatremia. Patient reports poor p.o. intake for several days prior to hospitalization. Admission sodium of 122 which increased to 129 after a liter of normal saline, essentially unchanged past 24h. Urine osmolality was 423. Urine sodium was high at 31 but likely taken as patient was receiving normal saline. Target rate of correction is 6-8 points in 24 hours -Monitor input output -No need for fluid restriction at this point. -Monitor sodium at least q12h -will give NS w/ 40 mEq/L K for 500 mL then stop Admission and Anticipated Discharge Date Admission Date: September 21, 2021 Subjective no interval events. trying hard to eat but minimal po Review of Systems Review of Systems: All systems reviewed & are unremarkable except as noted in Subjective Physical Exam Constitutional: well developed, + cachectic and cooperative; no acute distress Eyes: EOM intact bilaterally ENMT: Ears: no external ear abnormality Nose: no external nose abnormality Mouth: + muffled voice and + dry oral mucous membranes Neck: no nuchal rigidity Respiratory: normal respiratory effort Auscultation: + diminished lung sounds Cardiovascular: RRR, no murmur, no edema Gastrointestinal (Abdomen): Inspection/Auscultation: normal bowel sounds and + scaphoid Percussion/Palpation: abdomen soft; abdomen nontender Musculoskeletal: abnormal generalized weakness, needs help to sit forward for exam Skin: no rashes, warm and dry Neurologic: hicks, fluent speech, no tremor Psychiatric: A+Ox3, euthymic affect Results & Data ([facility]) Vital Signs (Past 12 Hours) Vital Signs Temp Pulse Pulse Resp BP Pulse Ox 09/22/21 15:03 36.5 C 59 L 17 101/60 96 09/22/21 10:51 36.4 C L 65 17 112/71 95 09/22/21 08:10 61 09/22/21 07:57 36.4 C L 57 L 17 129/78 95 Laboratory Results 09/22/21 09:00 09/22/21 09:00
[2021-09-22] MEDS ORDERED: POTASSIUM CHLORIDE 20 MEQ in SODIUM CHLORIDE 0.9% 500 ML IV ONE (17:30)
--- NOTE | 2021-09-22 18:08 | Hospitalist Progress Note ---
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 Left ventricle wall motion is normal. Left ventricle systolic function is normal. EF 65 to 70%. Aortic valve sclerosis mi ld, without significant aortic valve stenosis. Grade 1 diastolic dysfunction. Appreciate cardiology input Metastatic lung adenocarcinoma with brain mets --CT Brain:No change in two hyperdense intra-axial lesions since head CT of September 09, 2021. These are consistent with a neoplastic process and would be consistent with the provided history of metastatic disease. Stable vasogenic edema. No change in appearance of the brain. -Reports having blurry vision since about 1 month -Continue Decadron Appreciate radiation oncology input Patient to establish with [facility] oncology for chemotherapy Patient refuses radiation therapy Palliative care consulted to address goals of care Leukocytosis Likely secondary to steroids Hypertension Slightly elevated Continue amlodipine, propranolol H/O PSVT on propranolol Patient bradycardic from last confinement, patient on Aggrenox for presumptive stroke prophylaxis Propranolol dose decreased from 125 g to 80 mg given bradycardia Hyperlipidemia on statin Hyperglycemia likely secondary to steroid Rx HbA1c 6.4 Severe protein calorie malnutrition BMI 15.1 Nutrition consult Past tobacco abuse Disposition PT OT prior to discharge CODE STATUS DNI DNR DVT prophylaxis SCDs Re: brain mets Admission and Anticipated Discharge Date Admission Date: September 21, 2021 Subjective Patient is seen and examined bedside Subjectively feels her appetite is better Refuses radiation therapy Discussed with radiation oncology Family at bedside Patient prefers to discuss goals of care after recommendations from oncology Denies any chest pain, dyspnea, dizziness, nausea Review of Systems Review of Systems: All systems reviewed & are unremarkable except as noted in Subjective Physical Exam Physical Exam: Physical Exam: Vitals signs as noted above General Appearance: Thin, frail, chronically ill appearing Head: normocephalic, Atraumatic Eyes: normal inspection, EOMI Neck: supple, Trachea midline Respiratory/Chest: Decreased breath sounds, CTA Cardiovascular: S1, S2, No murmur Abdomen/GI:Soft, Non tender, Bowel sounds present Extremities/Musculoskeletal:normal inspection, no edema Neurologic/Psych:AAOX3, grossly no focal neurological deficits Skin: normal color, warm Results & Data Results & Data ([facility]) Vital Signs (Past 12 Hours) Vital Signs Temp Pulse Pulse Resp BP Pulse Ox 09/22/21 15:03 36.5 C 59 L 17 101/60 96 09/22/21 10:51 36.4 C L 65 17 112/71 95 09/22/21 08:10 61 09/22/21 07:57 36.4 C L 57 L 17 129/78 95 Laboratory Results Short CBC 09/22/21 Range/Units 09:00 WBC 19.60 H (4.8-10.8) K/uL Hgb 15.7 (12.0-16.0) g/dL Hct 45.3 (37-47) % Plt Count 322 (130-400) K/uL BMP 09/22/21 09:00 Sodium 128 L Potassium 3.4 L D Chloride 95 L Carbon Dioxide 23 BUN 25 H Creatinine 0.62 Glucose 168 H Calcium 9.4 Cardiac Enzymes 09/21/21 Range/Units 20:44 Troponin I 0.065 H* (0-0.045) ng/ml
[2021-09-22] MEDS: ACETAMINOPHEN 325 MG TAB PO PRN (20:15)
[2021-09-22] MEDS: PROPRANOLOL HCL LA 80 MG CAPCR PO SCH (20:17)
[2021-09-22] MEDS: ATORVASTATIN 20 MG TAB PO SCH (20:19)
[2021-09-23] MEDS: dexAMETHasone 4 MG TAB PO SCH ×4 (01:00→17:07)
[2021-09-23 06:00] LABS: Hematocrit (blood only) 42.3 % (37-47); Hemoglobin 14.6 g/dL (12.0-16.0); Mean Corpuscular Hemoglobin 33.6 pg (25-34); Mean Corpuscular Hgb Conc 34.5 g/dL (32-36); Mean Corpuscular Volume 97.2 fL (80-100); Mean Platelet Volume 9.1 fL (7.4-10.4); Platelet Count 286 K/uL (130-400); RDW Standard Deviation 53.5 fL (36.4-46.3); Red Blood Count 4.35 M/uL (4.2-5.4); White Blood Count 20.03 K/uL (4.8-10.8)
[2021-09-23 06:45] LABS: BUN Creatinine Ratio 45.1 (10-20); Calcium 9.4 mg/dl (8.5-10.1); Creatinine Clr Calc Pharmacy 57.7 ml/min; Est GFR (African American) 110.4 ml/min; Est GFR (Non-African American) 95.3 ml/min; Potassium 4.5 mmol/L (3.5-5.1)
[2021-09-23] MEDS: CALCIUM 600MG + VIT D 400 IU TAB PO SCH ×2 (08:39→20:26)
[2021-09-23] MEDS: FAMOTIDINE 20 MG TAB PO SCH (08:39)
[2021-09-23] MEDS: amLODIPine BESYLATE 5 MG TAB PO SCH (08:39)
[2021-09-23] MEDS: DIPYRIDAMOLE/ASPIRIN CAP PO SCH ×2 (08:39→20:26)
[2021-09-23] MEDS: DOCUSATE SODIUM/SENNA 50/8.6MG TAB PO SCH (08:40)
[2021-09-23] MEDS ORDERED: SODIUM CHLORIDE 0.9% 1000ML 250 ML IV ONE (08:44)
--- NOTE | 2021-09-23 08:46 | Nephrology Progress Note ---
Date of Service September 23, 2021 Assessment & Plan (1) Hyponatremia: Plan: hypovolemic hyponatremia. Patient reports poor p.o. intake for several days prior to hospitalization and is responsive to fluid resuscitation. Admission sodium of 122 which increased to 129 after a liter of normal saline, essentially unchanged then w/o IVF x 24h. Gave additional 500 mL NS and sNa improved further. Urine osmolality was 423. Urine sodium was high at 31 but likely taken as patient was receiving normal saline. Target rate of correction is 6-8 points in 24 hours. -Monitor input output -No need for fluid restriction at this point. -Monitor bmp at least q24h - maintain eukalemia -will give another 250 NS then stop >>>this problem is likely to recur as long as she is unable to maintain po intake; do not see this intake issue improving for her unfortunately Will sign off; pls call if ? Admission and Anticipated Discharge Date Admission Date: September 21, 2021 Subjective no interval events.; sNa improved to 131 with saline. no sob, no n/v; ongoing poor po Review of Systems Review of Systems: All systems reviewed & are unremarkable except as noted in Subjective Physical Exam Constitutional: well developed, + cachectic and cooperative; no acute distress Eyes: EOM intact bilaterally ENMT: Ears: no external ear abnormality Nose: no external nose abnormality Mouth: + muffled voice and + dry oral mucous membranes Neck: no nuchal rigidity Respiratory: normal respiratory effort Auscultation: + diminished lung sounds Cardiovascular: RRR, no murmur, no edema Gastrointestinal (Abdomen): Inspection/Auscultation: normal bowel sounds and + scaphoid Percussion/Palpation: abdomen soft; abdomen nontender Skin: no rashes, warm and dry Psychiatric: A+Ox3, euthymic affect Results & Data ([facility]) Vital Signs (Past 12 Hours) Vital Signs Temp Pulse Pulse Resp BP Pulse Ox 09/23/21 08:17 36.6 C 61 20 145/77 H 97 09/23/21 07:25 51 L 09/23/21 03:24 36.5 C 57 L 18 146/80 H 97 09/23/21 01:02 61 09/22/21 22:33 36.4 C L 56 L 18 128/72 97 Laboratory Results 09/23/21 05:46 09/23/21 05:46
--- NOTE | 2021-09-23 14:14 | Cardiology Progress Note ---
Date of Service September 23, 2021 Assessment & Plan (1) Abnormal electrocardiogram [ECG] [EKG]: (2) Hyponatremia: (3) Lung cancer metastatic to brain: Plan: Sodium has trended up to 131 mmol/L, potassium normal. No symptoms of angina. Blood pressure well controlled. I discussed with her that the rationale for radiation therapy would be to reduce the cerebral edema and palliate her symptoms. She states that at this time she does not want to proceed with chemotherapy or radiation therapy. Admission and Anticipated Discharge Date Admission Date: September 21, 2021 Subjective Patient seen in follow-up of abnormal EKG. Telemetry reveals sinus bradycardia in sinus rhythm ranging from 50 to 60 bpm with ongoing deep T wave inversions no bonifacio on telemetry. Patient eating her noontime meal at the time of my assessment. Denies chest discomfort, shortness of breath, has mild ongoing headache. Physical Exam Physical Exam: Temp Pulse Resp BP Pulse Ox 36.5 C 60 20 128/71 96 09/23/21 11:38 09/23/21 11:38 09/23/21 11:38 09/23/21 11:38 09/23/21 11:38 Constitutional: + cachectic Respiratory: normal respiratory effort, lungs clear to auscultation Cardiovascular: RRR, no murmur, no edema Gastrointestinal (Abdomen): normal bowel sounds, soft, nontender, no hepatosplenomegaly Neurologic: PERRL, EOMI, accommodation nl, no face palsy, no dysarthria Results & Data ([facility]) Vital Signs (Past 12 Hours) Vital Signs Temp Pulse Pulse Resp BP BP Pulse Ox 09/23/21 11:38 36.5 C 60 20 128/71 96 09/23/21 08:17 36.6 C 61 20 145/77 H 97 09/23/21 07:25 51 L 09/23/21 03:24 36.5 C 57 L 18 146/80 H 97
--- NOTE | 2021-09-23 17:31 | Hospitalist Progress Note ---
Date of Service September 23, 2021 Assessment & Plan (1) Hyponatremia: Plan: Acute on chronic hyponatremia Presented with sodium levels 122 Likely secondary to hypovolemia given very poor oral intake Urine osmolality 423, urine sodium 31 Received gentle IV fluids Appreciate nephrology input Sodium levels improved to 131 [address] clerk [address]-T wave changes Denies any anginal symptoms Troponin negative EKG findings likely secondary to intracranial process -ECHO: Mild concentric LVH. Left ventricle wall motion is normal. Left ventricle systolic function is normal. EF 65 to 70%. Aortic valve sclerosis mild, without significant aortic valve stenosis. Grade 1 diastolic dysfunction. Appreciate cardiology input Metastatic lung adenocarcinoma with brain mets --CT Brain:No change in two hyperdense intra-axial lesions since head CT of September 09, 2021. These are consistent with a neoplastic process and would be consistent with the provided history of metastatic disease. Stable vasogenic edema. No change in appearance of the brain. -Reports having blurry vision since about 1 month -Continue Decadron Appreciate radiation oncology input Patient to establish with [facility] oncology for chemotherapy Patient refuses radiation therapy Palliative care consulted to address goals of care Discussed with [facility] oncology on 09/23/2021: Chemotherapy unlikely to benefit if patient refuses radiation therapy Patient does not want to pursue any chemo, radiation therapy Plan to discharge home with hospice when arranged Leukocytosis Likely secondary to steroids Hypertension BP Stable Continue amlodipine, propranolol H/O PSVT on propranolol Patient bradycardic from last confinement, patient on Aggrenox for presumptive stroke prophylaxis Propranolol dose decreased from 125 g to 80 mg given bradycardia Hyperlipidemia on statin Hyperglycemia likely secondary to steroid Rx HbA1c 6.4 Severe protein calorie malnutrition BMI 15.1 Nutrition consult Past tobacco abuse Disposition PT OT prior to discharge Patient prefers to go to rehab facility if qualifies CODE STATUS DNI DNR DVT prophylaxis SCDs Re: brain mets Admission and Anticipated Discharge Date Admission Date: September 21, 2021 Subjective Patient is seen and examined bedside Patient states feeling better today Discussed with oncology today Blurry vision, mild headache unchanged Patient does not want to pursue any chemo, radiation therapy Denies any chest pain, dyspnea, dizziness, nausea Review of Systems Review of Systems: All systems reviewed & are unremarkable except as noted in Subjective Physical Exam Physical Exam: Physical Exam: Vitals signs as noted above General Appearance: Thin, frail, chronically ill appearing Head: normocephalic, Atraumatic Eyes: normal inspection, EOMI Neck: supple, Trachea midline Respiratory/Chest: Decreased breath sounds, CTA Cardiovascular: S1, S2, No murmur Abdomen/GI:Soft, Non tender, Bowel sounds present Extremities/Musculoskeletal:normal inspection, no edema Neurologic/Psych:AAOX3, grossly no focal neurological deficits Skin: normal color, warm Results & Data Results & Data ([facility]) Vital Signs (Past 12 Hours) Vital Signs Temp Pulse Pulse Resp BP BP Pulse Ox 09/23/21 15:43 36.4 C L 60 20 130/65 95 09/23/21 15:24 63 09/23/21 11:38 36.5 C 60 20 128/71 96 09/23/21 08:17 36.6 C 61 20 145/77 H 97 09/23/21 07:25 51 L Laboratory Results Short CBC 09/23/21 Range/Units 05:46 WBC 20.03 H (4.8-10.8) K/uL Hgb 14.6 (12.0-16.0) g/dL Hct 42.3 (37-47) % Plt Count 286 (130-400) K/uL BMP 09/23/21 05:46 Sodium 131 L Potassium 4.5 D Chloride 100 Carbon Dioxide 22 BUN 26 H Creatinine 0.57 L Glucose 125 H Calcium 9.4
[2021-09-23] MEDS: PROPRANOLOL HCL LA 80 MG CAPCR PO SCH (20:25)
[2021-09-23] MEDS: ATORVASTATIN 20 MG TAB PO SCH (20:26)
[2021-09-23] MEDS: ACETAMINOPHEN 325 MG TAB PO PRN (20:28)
[2021-09-24] MEDS: dexAMETHasone 4 MG TAB PO SCH ×5 (00:44→23:40)
[2021-09-24] MEDS: ACETAMINOPHEN 325 MG TAB PO PRN ×2 (03:55→10:47)
[2021-09-24 06:27] LABS: Hematocrit (blood only) 42.2 % (37-47); Hemoglobin 14.4 g/dL (12.0-16.0); Mean Corpuscular Hemoglobin 33.1 pg (25-34); Mean Corpuscular Hgb Conc 34.1 g/dL (32-36); Mean Platelet Volume 9.2 fL (7.4-10.4); Platelet Count 283 K/uL (130-400); RDW Coefficient of Variation 14.6 % (11.5-14.5); RDW Standard Deviation 52.5 fL (36.4-46.3); Red Blood Count 4.35 M/uL (4.2-5.4); White Blood Count 23.25 K/uL (4.8-10.8)
[2021-09-24 06:56] LABS: BUN Creatinine Ratio 39.5 (10-20); Calcium 9.2 mg/dl (8.5-10.1); Creatinine Clr Calc Pharmacy 67.8 ml/min; Est GFR (Non-African American) 100.1 ml/min; Magnesium 2.1 mg/dl (1.8-2.4); Phosphorus 2.6 mg/dl (2.5-4.9); Potassium 4.2 mmol/L (3.5-5.1)
[2021-09-24] MEDS: DIPYRIDAMOLE/ASPIRIN CAP PO SCH ×2 (08:07→21:08)
[2021-09-24] MEDS: FAMOTIDINE 20 MG TAB PO SCH (08:07)
[2021-09-24] MEDS: CALCIUM 600MG + VIT D 400 IU TAB PO SCH ×2 (08:07→21:07)
[2021-09-24] MEDS: amLODIPine BESYLATE 5 MG TAB PO SCH (08:07)
[2021-09-24] MEDS: DOCUSATE SODIUM/SENNA 50/8.6MG TAB PO SCH (08:09)
--- NOTE | 2021-09-24 09:47 | Palliative Care Consultation ---
Date of Consultation September 24, 2021 Assessment & Plan (1) Palliative care encounter: Fannie Acuñar 66yo female with PMH including metastatic lung adenocarcinoma with metastasis to the brain, HTN, HLD, SVT, and chronic hyponatremia who was admitted to [facility] on 09/21/2021 with [id number] hyponatremia. Goals of care: in regards to her cancer treatment, patient has had ongoing evaluation by [facility], who believes that further cancer treatment is likely to be futile. Patient has expressed to multiple providers that she is not interested in further chemotherapy or radiation. In discussing patient's goals of care today, patient confirms she is DNR/DNI, and also confirms she is not interested in pursuing chemotherapy, radiation, or other cancer treatments. Disposition: discharge options were reviewed with patient today; patient's sister (Shanell, ) also took part in the conversation on speakerphone. Patient hopes to work on her strength in the coming [id number] because she wants to preserve as much of her independence for as long as possible, and for this reason is interested in pursuing [facility], SNF, or home hospice, possibly with home PT as well. Patient lives alone, though she has numerous family member s locally who help Fannie out with needs that arise. Patient's sister Shanell lives next door and checks on Fannie about six times per day. Shanell and other family members report they are able and willing to provide hospice medicines if needed. Case management: discussed this situation with MARIELLA Alves to explore options with patient and patient's sister; they chose to go home with home hospice, which is currently being arranged. Please see the attestation by SARAH Allison for further recommendations. (2) Weakness: (3) Lung cancer metastatic to brain: History of Present Illness Attending Physician: Hamlet Oliva MD History of Present Illness Fannie Acuñar 66yo female with PMH including metastatic lung adenocarcinoma with metastasis to the brain, HTN, HLD, SVT, and chronic hyponatremia who was admitted to [facility] on 09/21/2021 with [id number] hyponatremia. Patient's hyponatremia was felt to be secondary to hypovolemia, and patient's sodium did improve with fluid administration. Separately, palliative care was consulted to help clarify patient's goals of care in regards to her cancer diagnosis. Please see A&P for further detail. Thanks for involving palliative medicine in the care of this patient. Allergies Allergy/AdvReac Type Severity Reaction Status Date / Time shellfish derived Allergy Unknown Unknown Unverified 09/21/21 01:21 Home Medications Medication Instructions Recorded Confirmed Type amlodipine 5 mg tablet (Norvasc) 5 mg PO DAILY 09/09/21 09/21/21 History aspirin 25 mg-dipyridamole 200 mg 1 cap PO BID 09/09/21 09/21/21 History capsule,ext.release 12 hr multiphase atorvastatin 20 mg tablet (Lipitor) 20 mg PO HS 09/09/21 09/21/21 History calcium carbonate 600 mg-vitamin 1 cap PO BID 09/09/21 09/21/21 History D3 5 mcg (200 unit) capsule (Calcium 600 + D(3)) cetirizine 10 mg tablet (Zyrtec) 10 mg PO HS PRN 09/09/21 09/21/21 History famotidine 20 mg tablet 20 mg PO QAM 09/09/21 09/21/21 History magnesium oxide 250 mg PO HS 09/09/21 09/21/21 History potassium chloride 10 mEq 10 meq PO DAILY 09/09/21 09/21/21 History capsule,extended release propranolol 120 mg capsule,24 120 mg PO HS 09/09/21 09/21/21 History hr,extended release (Inderal LA) dexamethasone 4 mg tablet 4 mg PO Q6H #60 tab 09/12/21 09/21/21 Rx rizatriptan 10 mg tablet 10 mg PO UD PRN 09/21/21 09/21/21 History Patient History Medical History HTN (hypertension) Hypertension Lung cancer Migraine SVT (supraventricular tachycardia) Surgical History H/O lymph node biopsy H/O: hysterectomy Family History Other Cancer Hypertension Social History Smoking Status: Former smoker Second Hand Exposure: No; Do You Dip or Chew Tobacco: No; Tobacco Cessation Education Requested by Patient: No Hx Alcohol Use: No Hx Substance Use: No Preferred Language: Macedonian Communication Ability: Effective Criminal Attorney Required: No Beliefs That Will Affect Care: None Current Living Situation: Alone How many Children do You have: 0 Other Information That Helps Us Care for You: No Feels Safe at Home: Yes Safety Concerns: Feels Safe At This Time Assistive Devices: Walker Review of Systems Review of Systems: Constitutional: denies fever, chills CV: denies chest pain Resp: denies shortness of breath GI: denies abdominal pain, diarrhea Palliative performance scale: 60% Physical Exam Physical Exam: Constitutional: frail-appearing older female laying comfortably in bed CV: extremities well-perfused Resp: breathing non-labored Neuro: alert, oriented, no focal neurologic deficit appreciated Results & Data ([facility]) Vital Signs (Past 12 Hours) Vital Signs Temp Pulse Pulse Resp BP BP Pulse Ox 09/24/21 07:05 56 L 09/24/21 07:00 36.5 C 57 L 18 149/82 H 97 09/24/21 03:46 36.6 C 61 16 147/74 H 97 09/23/21 22:53 36.5 C 55 L 16 148/83 H 95 09/23/21 22:19 65 PG Care Time/CCT Total # of Minutes Spent Total Time Spent with Patient: Total time spent is greater than 50% in coordination of care (as documented) at patient's floor/unit and/or counseling patient: Coding Level of Care Code None Diagnoses Palliative care encounter Z51.5 Weakness R53.1 Lung cancer metastatic to brain C34.90; C79.31 Comment see provider documentation Resident Activity Tracking Resident Involvement: Resident Care Provided Care Provided: Adult [facility] Medicine
--- NOTE | 2021-09-24 10:55 | Cardiology Progress Note ---
Date of Service September 24, 2021 Assessment & Plan (1) Abnormal electrocardiogram [ECG] [EKG]: (2) Hyponatremia: (3) Lung cancer metastatic to brain: Plan: Sodium has trended up to 131 mmol/L 09/23/2021, 129 mmol/L, today, 09/24/2021. Potassium normal. No symptoms of angina. As previously noted, on 09/23/2012, I discussed with her that the rationale for radiation therapy would be to reduce the cerebral edema and palliate her symptoms. She states that at this time she does not want to proceed with chemotherapy or radiation therapy. Agree with plan for palliative care consultation. Continue dexamethasone, leukocytosis felt to be related to dexamethasone however her white count is trending up. She is not on pharmacologic DVT prophylaxis due to risk of intracranial hemorrhage related to metastatic disease to the brain. Admission and Anticipated Discharge Date Admission Date: September 21, 2021 Subjective Patient seen in follow-up of abnormal EKG. She is resting comfortably in bed. Denies chest discomfort. Telemetry reveals sinus rhythm in the 50s to 60s. Physical Exam Physical Exam: Temp Pulse Resp BP Pulse Ox 36.5 C 56 L 18 149/82 H 97 09/24/21 07:00 09/24/21 07:05 09/24/21 07:00 09/24/21 07:00 09/24/21 07:00 Constitutional: + cachectic Respiratory: normal respiratory effort, lungs clear to auscultation Cardiovascular: RRR, no murmur, no edema Gastrointestinal (Abdomen): normal bowel sounds, soft, nontender, no hepatosplenomegaly Neurologic: PERRL, EOMI, accommodation nl, no face palsy, no dysarthria Results & Data ([facility]) Vital Signs (Past 12 Hours) Vital Signs Temp Pulse Pulse Resp BP BP Pulse Ox 09/24/21 07:05 56 L 09/24/21 07:00 36.5 C 57 L 18 149/82 H 97 09/24/21 03:46 36.6 C 61 16 147/74 H 97 09/23/21 22:53 36.5 C 55 L 16 148/83 H 95
--- NOTE | 2021-09-24 12:53 | Hospitalist Progress Note ---
Date of Service September 24, 2021 Assessment & Plan (1) Hyponatremia: Plan: Acute on chronic hyponatremia Presented with sodium levels 122 Likely secondary to hypovolemia given very poor oral intake Urine osmolality 423, urine sodium 31 Received gentle IV fluids Appreciate nephrology input Sodium levels improved to 131, now 129 Monitor [address] roll inspector ST-T wave changes Denies any anginal symptoms Troponin negative EKG findings likely secondary to intracranial process -ECHO: Mild concentric LVH. Left ventricle wall motion is normal. Left ventricle systolic function is normal. EF 65 to 70%. Aortic valve sclerosis mild, without significant aortic valve stenosis. Grade 1 diastolic dysfunction. Appreciate cardiology input Metastatic lung adenocarcinoma with brain mets --CT Brain:No change in two hyperdense intra-axial lesions since head CT of September 09, 2021. These are consistent with a neoplastic process and would be consistent with the provided history of metastatic disease. Stable vasogenic edema. No change in appearance of the brain. -Reports having blurry vision since about 1 month -Continue Decadron Appreciate radiation oncology input Patient refuses radiation therapy Patient to establish with [facility] oncology for chemotherapy Discussed with [facility] oncology on 09/23/2021: Chemotherapy unlikely to benefit if patient refuses radiation therapy Patient does not want to pursue any chemotherapy or radiation therapy Palliative care consulted to address goals of care Plan to discharge home with hospice when arranged Leukocytosis Likely secondary to steroids Hypertension BP Stable Continue amlodipine, propranolol H/O PSVT on propranolol Patient bradycardic from last confinement, patient on Aggrenox for presumptive stroke prophylaxis Propranolol dose decreased from 125 g to 80 mg given bradycardia Hyperlipidemia on statin Hyperglycemia likely secondary to steroid Rx HbA1c 6.4 Severe protein calorie malnutrition BMI 15.1 Nutrition consult Past tobacco abuse Disposition: plan to DC home w/ hospice CODE STATUS: DNI DNR DVT prophylaxis: SCDs Re: brain mets Admission and Anticipated Discharge Date Admission Date: September 21, 2021 Subjective Patient is seen in follow up of hyponatremia, lung ca w/ mets Pt is laying in bed in NAD Denies any chest pain, dyspnea, dizziness, nausea Seen by palliative medicine today and decided for home hospice, family to assist w/ care Patient does not want to pursue any chemotherapy or radiation therapy Review of Systems Review of Systems: All systems reviewed & are unremarkable except as noted in Subjective Physical Exam Physical Exam: General Appearance: Thin, frail, chronically ill appearing Head: normocephalic, Atraumatic Eyes: normal inspection, EOMI Neck: supple, Trachea midline Respiratory/Chest: Decreased breath sounds, CTA Cardiovascular: S1, S2, No murmur Abdomen/GI:Soft, Non tender, Bowel sounds present Extremities/Musculoskeletal:normal inspection, no edema Neurologic/Psych:AAOX3, speech fluent, moves extremities Skin: normal color, warm Results & Data Results & Data ([facility]) Vital Signs (Past 12 Hours) Vital Signs Temp Pulse Pulse Resp BP BP Pulse Ox 09/24/21 11:02 36.7 C 61 18 126/73 95 09/24/21 07:05 56 L 09/24/21 07:00 36.5 C 57 L 18 149/82 H 97 09/24/21 03:46 36.6 C 61 16 147/74 H 97 Laboratory Results 09/24/21 09/24/21 Range/Units 05:59 05:59 WBC 23.25 H (4.8-10.8) K/uL RBC 4.35 (4.2-5.4) M/uL Hgb 14.4 (12.0-16.0) g/dL Hct 42.2 (37-47) % MCV 97.0 (80-100) fL MCH 33.1 (25-34) pg MCHC 34.1 (32-36) g/dL RDW Std Deviation 52.5 H (36.4-46.3) fL RDW Coeff of Chinyere 14.6 H (11.5-14.5) % Plt Count 283 (130-400) K/uL MPV 9.2 (7.4-10.4) fL Sodium 129 L (136-145) mmol/L Potassium 4.2 (3.5-5.1) mmol/L Chloride 96 L (98-107) mmol/L Carbon Dioxide 25 (21-32) mmol/L Anion Gap 8.0 (3-11) BUN 19 H (7-18) mg/dl Creatinine 0.49 L (0.6-1.2) mg/dl Est Cr Clr Drug Dosing 67.8 ml/min Est GFR ( Amer) 116.0 ml/min Est GFR (Non-Af Amer) 100.1 ml/min BUN/Creatinine Ratio 39.5 H (10-20) Glucose 108 H (70-99) mg/dl Calcium 9.2 (8.5-10.1) mg/dl Phosphorus 2.6 (2.5-4.9) mg/dl Magnesium 2.1 (1.8-2.4) mg/dl Medications Administered Current Inpatient Medications Acetaminophen (Acetaminophen 325 Mg Tab) 650 mg PO Q4H PRN PRN Reason: Pain or Fever Stop: 10/21/21 04:44 Last Admin: 09/24/21 10:47 Dose: 650 mg Documented by: Albuterol (Albut/Ipratrop 3mg/0.5mg Neb 3 Ml Vial) 3 ml NEB Q2H PRN PRN Reason: Wheezing Stop: 10/21/21 04:44 Amlodipine Besylate (Amlodipine Besylate 5 Mg Tab) 5 mg PO DAILY [facility] Stop: 10/21/21 08:59 Last Admin: 09/24/21 08:07 Dose: 5 mg Documented by: Atorvastatin Calcium (Atorvastatin 20 Mg Tab) 20 mg PO HS [facility] Stop: 10/21/21 20:59 Last Admin: 09/23/21 20:26 Dose: 20 mg Documented by: Cetirizine HCl (Cetirizine Hcl 10 Mg Tablet) 10 mg PO HS PRN PRN Reason: Allergy Symptoms Stop: 10/21/21 04:44 Dexamethasone (Dexamethasone 4 Mg Tab) 4 mg PO Q6 [facility] Stop: 10/21/21 05:59 Last Admin: 09/24/21 10:46 Dose: 4 mg Documented by: Dipyridamole/Aspirin (Dipyridamole/Aspirin Cap) 1 cap PO BID [facility]UL Stop: 10/21/21 08:59 Last Admin: 09/24/21 08:07 Dose: 1 cap Documented by: Famotidine (Famotidine 20 Mg Tab) 20 mg PO QAM [facility] Stop: 10/21/21 08:59 Last Admin: 09/24/21 08:07 Dose: 20 mg Documented by: Promethazine HCl 6.25 mg/ (Sodium Chloride) 50.25 mls @ 201 mls/hr IV Q6H PRN PRN Reason: Nausea And Vomiting Stop: 10/21/21 04:44 Last Infusion: 09/22/21 07:03 Dose: Infused Documented by: Lorazepam (Lorazepam 0.5 Mg Tab) 0.5 mg PO BID PRN PRN Reason: Anxiety Stop: 10/21/21 15:53 Last Admin: 09/21/21 16:30 Dose: 0.5 mg Documented by: Multivitamins/Minerals (Calcium 600mg + Vit D 400 Iu Tab) 1 tab PO BID [facility] Stop: 10/21/21 08:59 Last Admin: 09/24/21 08:07 Dose: 1 tab Documented by: Oxycodone HCl (Oxycodone Hcl Ir 5 Mg Tab (Immediate Release)) 5 mg PO Q4H PRN PRN Reason: Pain Stop: 10/05/21 04:44 Polyethylene Glycol (Polyethylene (Miralax) 17 Gm Pack) 17 gm PO DAILY PRN PRN Reason: Constipation Stop: 10/21/21 04:44 Propranolol HCl (Propranolol Hcl La 80 Mg Capcr) 80 mg PO HS [facility] Stop: 10/21/21 20:59 Last Admin: 09/23/21 20:25 Dose: 80 mg Documented by: Senna/Docusate Sodium (Docusate Sodium/Senna 50/8.6mg Tab) 1 tab PO QAM [facility] Stop: 10/21/21 05:59 Last Admin: 09/24/21 08:09 Dose: 1 tab Documented by:
[2021-09-24] MEDS: LORazepam 0.5 MG TAB PO PRN (14:06)
--- NOTE | 2021-09-24 15:13 | Billing Data ---
Date of Service September 24, 2021 Coding Level of Care Code 99442 Inpt Consult Level 3 Time Spent (min) 70
[2021-09-24] MEDS: ATORVASTATIN 20 MG TAB PO SCH (21:07)
[2021-09-24] MEDS: PROPRANOLOL HCL LA 80 MG CAPCR PO SCH (21:08)
[2021-09-25] MEDS: dexAMETHasone 4 MG TAB PO SCH ×3 (05:13→17:29)
[2021-09-25 07:49] LABS: Hematocrit (blood only) 41.7 % (37-47); Hemoglobin 14.5 g/dL (12.0-16.0); Mean Corpuscular Hemoglobin 33.3 pg (25-34); Mean Corpuscular Hgb Conc 34.8 g/dL (32-36); Mean Corpuscular Volume 95.6 fL (80-100); Mean Platelet Volume 9.3 fL (7.4-10.4); Platelet Count 252 K/uL (130-400); RDW Coefficient of Variation 14.3 % (11.5-14.5); RDW Standard Deviation 50.3 fL (36.4-46.3); Red Blood Count 4.36 M/uL (4.2-5.4); White Blood Count 21.32 K/uL (4.8-10.8)
[2021-09-25] MEDS: FAMOTIDINE 20 MG TAB PO SCH (07:49)
[2021-09-25] MEDS: amLODIPine BESYLATE 5 MG TAB PO SCH (07:49)
[2021-09-25] MEDS: CALCIUM 600MG + VIT D 400 IU TAB PO SCH (07:50)
[2021-09-25] MEDS: DIPYRIDAMOLE/ASPIRIN CAP PO SCH (07:50)
[2021-09-25] MEDS: DOCUSATE SODIUM/SENNA 50/8.6MG TAB PO SCH (07:57)
[2021-09-25 08:23] LABS: Calcium 9.1 mg/dl (8.5-10.1); Creatinine Clr Calc Pharmacy 70.4 ml/min; Est GFR (African American) 117.6 ml/min; Est GFR (Non-African American) 101.5 ml/min; Phosphorus 2.8 mg/dl (2.5-4.9); Potassium 4.3 mmol/L (3.5-5.1)
--- NOTE | 2021-09-25 09:24 | Hospitalist Progress Note ---
Date of Service September 25, 2021 Assessment & Plan (1) Hyponatremia: Plan: Acute on chronic hyponatremia Presented with sodium levels 122 Likely secondary to hypovolemia given very poor oral intake Urine osmolality 423, urine sodium 31 Received gentle IV fluids Appreciate nephrology input Sodium levels improved to 131, now 130 Monitor Abnormal barrel header ST-T wave changes Denies any anginal symptoms Troponin negative EKG findings likely secondary to intracranial process -ECHO: Mild concentric LVH. Left ventricle wall motion is normal. Left ventricle systolic function is normal. EF 65 to 70%. Aortic valve sclerosis mild, without significant aortic valve stenosis. Grade 1 diastolic dysfunction. Appreciate cardiology input Metastatic lung adenocarcinoma with brain mets --CT Brain:No change in two hyperdense intra-axial lesions since head CT of September 09, 2021. These are consistent with a neoplastic process and would be consistent with the provided history of metastatic disease. Stable vasogenic edema. No change in appearance of the brain. -Reports having blurry vision since about 1 month -Continue Decadron Appreciate radiation oncology input Patient refuses radiation therapy Patient to establish with [facility] oncology for chemotherapy Discussed with [facility] oncology on 09/23/2021: Chemotherapy unlikely to benefit if patient refuses radiation therapy Patient does not want to pursue any chemotherapy or radiation therapy Palliative care consulted to address goals of care Plan to discharge home with hospice when arranged Leukocytosis Likely secondary to steroids Hypertension BP Stable Continue amlodipine, propranolol H/O PSVT on propranolol Patient bradycardic from last confinement, patient on Aggrenox for presumptive stroke prophylaxis Propranolol dose decreased from 125 g to 80 mg given bradycardia Hyperlipidemia on statin Hyperglycemia likely secondary to steroid Rx HbA1c 6.4 Severe protein calorie malnutrition BMI 15.1 Nutrition consult Past tobacco abuse Disposition: plan to DC home w/ hospice CODE STATUS: DNI DNR DVT prophylaxis: SCDs Re: brain mets Admission and Anticipated Discharge Date Admission Date: September 21, 2021 Subjective Patient is seen in follow up of hyponatremia, lung ca w/ mets Pt is laying in bed in NAD Denies any chest pain, dyspnea, dizziness, nausea Seen by palliative and decided for home hospice, family to assist w/ care Patient does not want to pursue any chemotherapy or radiation therapy Plan to DC home with hospice today Review of Systems Review of Systems: All systems reviewed & are unremarkable except as noted in Subjective Physical Exam Physical Exam: General Appearance: Thin, frail, chronically ill appearing Head: normocephalic, Atraumatic Eyes: normal inspection, EOMI Neck: supple Respiratory/Chest: Decreased breath sounds, CTA Cardiovascular: S1, S2, No murmur Abdomen/GI:Soft, Non tender, Bowel sounds present Extremities/Musculoskeletal:normal inspection, no edema Neurologic/Psych:AAOX3, speech fluent, moves extremities Skin: normal color, warm Results & Data Results & Data ([facility]) Vital Signs (Past 12 Hours) Vital Signs Temp Pulse Pulse Resp BP Pulse Ox 09/25/21 07:28 36.4 C L 62 17 117/75 95 09/25/21 03:00 36.5 C 62 16 144/82 H 95 09/24/21 23:00 36.8 C 60 16 131/75 95 09/24/21 22:18 69 Laboratory Results 09/25/21 09/25/21 Range/Units 07:24 07:24 WBC 21.32 H (4.8-10.8) K/uL RBC 4.36 (4.2-5.4) M/uL Hgb 14.5 (12.0-16.0) g/dL Hct 41.7 (37-47) % MCV 95.6 (80-100) fL MCH 33.3 (25-34) pg MCHC 34.8 (32-36) g/dL RDW Std Deviation 50.3 H (36.4-46.3) fL RDW Coeff of Chinyere 14.3 (11.5-14.5) % Plt Count 252 (130-400) K/uL MPV 9.3 (7.4-10.4) fL Sodium 130 L (136-145) mmol/L Potassium 4.3 (3.5-5.1) mmol/L Chloride 96 L (98-107) mmol/L Carbon Dioxide 24 (21-32) mmol/L Anion Gap 10.0 (3-11) BUN 18 (7-18) mg/dl Creatinine 0.47 L (0.6-1.2) mg/dl Est Cr Clr Drug Dosing 70.4 ml/min Est GFR ( Amer) 117.6 ml/min Est GFR (Non-Af Amer) 101.5 ml/min BUN/Creatinine Ratio 39.0 H (10-20) Glucose 115 H (70-99) mg/dl Calcium 9.1 (8.5-10.1) mg/dl Phosphorus 2.8 (2.5-4.9) mg/dl Magnesium Pending Medications Administered Current Inpatient Medications Acetaminophen (Acetaminophen 325 Mg Tab) 650 mg PO Q4H PRN PRN Reason: Pain or Fever Stop: 10/21/21 04:44 Last Admin: 09/24/21 10:47 Dose: 650 mg Documented by: Albuterol (Albut/Ipratrop 3mg/0.5mg Neb 3 Ml Vial) 3 ml NEB Q2H PRN PRN Reason: Wheezing Stop: 10/21/21 04:44 Amlodipine Besylate (Amlodipine Besylate 5 Mg Tab) 5 mg PO DAILY [facility] Stop: 10/21/21 08:59 Last Admin: 09/25/21 07:49 Dose: 5 mg Documented by: Atorvastatin Calcium (Atorvastatin 20 Mg Tab) 20 mg PO HS [facility] Stop: 10/21/21 20:59 Last Admin: 09/24/21 21:07 Dose: 20 mg Documented by: Cetirizine HCl (Cetirizine Hcl 10 Mg Tablet) 10 mg PO HS PRN PRN Reason: Allergy Symptoms Stop: 10/21/21 04:44 Dexamethasone (Dexamethasone 4 Mg Tab) 4 mg PO Q6 [facility] Stop: 10/21/21 05:59 Last Admin: 09/25/21 05:13 Dose: 4 mg Documented by: Dipyridamole/Aspirin (Dipyridamole/Aspirin Cap) 1 cap PO BID [facility] Stop: 10/21/21 08:59 Last Admin: 09/25/21 07:50 Dose: 1 cap Documented by: Famotidine (Famotidine 20 Mg Tab) 20 mg PO QAM [facility] Stop: 10/21/21 08:59 Last Admin: 09/25/21 07:49 Dose: 20 mg Documented by: Promethazine HCl 6.25 mg/ (Sodium Chloride) 50.25 mls @ 201 mls/hr IV Q6H PRN PRN Reason: Nausea And Vomiting Stop: 10/21/21 04:44 Last Infusion: 09/22/21 07:03 Dose: Infused Documented by: Lorazepam (Lorazepam 0.5 Mg Tab) 0.5 mg PO BID PRN PRN Reason: Anxiety Stop: 10/21/21 15:53 Last Admin: 09/24/21 14:06 Dose: 0.5 mg Documented by: Multivitamins/Minerals (Calcium 600mg + Vit D 400 Iu Tab) 1 tab PO BID [facility] Stop: 10/21/21 08:59 Last Admin: 09/25/21 07:50 Dose: 1 tab Documented by: Oxycodone HCl (Oxycodone Hcl Ir 5 Mg Tab (Immediate Release)) 5 mg PO Q4H PRN PRN Reason: Pain Stop: 10/05/21 04:44 Polyethylene Glycol (Polyethylene (Miralax) 17 Gm Pack) 17 gm PO DAILY PRN PRN Reason: Constipation Stop: 10/21/21 04:44 Propranolol HCl (Propranolol Hcl La 80 Mg Capcr) 80 mg PO HS [facility] Stop: 10/21/21 20:59 Last Admin: 09/24/21 21:08 Dose: 80 mg Documented by: Senna/Docusate Sodium (Docusate Sodium/Senna 50/8.6mg Tab) 1 tab PO QAM [facility] Stop: 10/21/21 05:59 Last Admin: 09/25/21 07:57 Dose: 1 tab Documented by:
[2021-09-25 09:25] LABS: Magnesium 2.1 mg/dl (1.8-2.4)
--- NOTE | 2021-09-25 13:16 | Discharge Summary ---
Date of Service September 25, 2021 Admission HPI Per Admitting Provider History obtained from patient, family, and records. Medical history significant for recent diagnosis of lung adenocarcinoma with brain mets on steroid Rx, hypertension, PSVT as per records, hyperlipidemia, chronic hyponatremia, migraine, past tobacco abuse. Recent confinement September 09-2020 for nausea vomiting symptoms attributed to cerebral edema from brain mets. Palliative radiation recommended by [facility] [place] [facility]. Patient discharged on Decadron Rx. Outpatient appointment with oncologist for possible chemotherapy next week. Increasing generalized weakness at home, poor appetite. No bowel movement for 1 week because she has not been eating a lot as per patient. Patient denies abdominal pain. No unusual headache symptoms. Patient feeling more out of breath without chest pain complaints. No unusual cough symptoms. Patient brought by family to the ER for evaluation. 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 Admission Exam Per Admitting Provider GENERAL: Slightly uncomfortable, slow speech, dysphonic, underweight, no respiratory distress SKIN: Normal color, warm HEENT: [place] palpebral conjunctivae, no ptosis, dry buccal mucosa NECK : Supple, no tenderness CHEST : CTA, no tenderness HEART : Bradycardic, no obvious murmurs ABDOMEN: no distention, nontender EXTREMITIES : No LE swelling/tenderness, no other conspicuous deformities noted NEUROLOGIC : Coherent, no facial asymmetry, , gait and stance not assessed Principal Diagnosis Metastatic lung adenocarcinoma with brain metastases Hyponatremia Leukocytosis Discharge Exam General Appearance: Thin, frail, chronically ill appearing Head: normocephalic, Atraumatic Eyes: normal inspection, EOMI Neck: supple Respiratory/Chest: Decreased breath sounds, CTA Cardiovascular: S1, S2, No murmur Abdomen/GI:Soft, Non tender, Bowel sounds present Extremities/Musculoskeletal:normal inspection, no edema Neurologic/Psych:AAOX3, speech fluent, moves extremities Skin: normal color, warm Discharge Data Allergies Allergy/AdvReac Type Severity Reaction Status Date / Time shellfish derived Allergy Unknown Unknown Unverified 09/21/21 01:21 Consultations 09/21/21 02:28 ED Decision to Admit Stat 09/21/21 04:45 Consult Nephrology Routine 09/21/21 10:46 Consult Cardiology Routine 09/21/21 11:06 Consult Radiation Oncology Routine 09/22/21 09:38 Consult Palliative Care Routine Ordered Studies 09/21/21 01:25 CT head/brain wo con Urgent IMPRESSION: No change in two hyperdense intra-axial lesions since head CT of September 09, 2021. These are consistent with a neoplastic process and would be consistent with the provided history of metastatic disease. Stable vasogenic edema. No change in appearance of the brain. 09/21/21 03:18 CT angio chest PE protocol Urgent IMPRESSION: 1. No evidence for pulmonary embolus. 2. Left lung masses/nodules as described above are again noted and are consistent with the patient's known malignancy. 3. Redemonstration of the left supraclavicular, AP window, left hilar lymphadenopathy. 4. Emphysema. 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 Left ventricle wall motion is normal. Left ventricle systolic function is normal. EF 65 to 70%. Aortic valve sclerosis mild, without significant aortic valve stenosis. Grade 1 diastolic dysfunction. Appreciate cardiology input Metastatic lung adenocarcinoma with brain mets --CT Brain:No change in two hyperdense intra-axial lesions since head CT of September 09, 2021. These are consistent with a neoplastic process and would be consistent with the provided history of metastatic disease. Stable vasogenic edema. No change in appearance of the brain. -Reports having blurry vision since about 1 month -Continue Decadron Appreciate radiation oncology input Patient refuses radiation therapy Patient to establish with [facility]ology for chemotherapy Discussed with [facility] oncology on 09/23/2021: Chemotherapy unlikely to benefit if patient refuses radiation therapy Patient does not want to pursue any chemotherapy or radiation therapy Palliative care consulted to address goals of care Plan to discharge home with hospice when arranged Leukocytosis Likely secondary to steroids Hypertension BP Stable Continue amlodipine, propranolol H/O PSVT on propranolol Patient bradycardic from last confinement, patient on Aggrenox for presumptive stroke prophylaxis Propranolol dose decreased from 125 g to 80 mg given bradycardia Hyperlipidemia on statin Hyperglycemia likely secondary to steroid Rx HbA1c 6.4 Severe protein calorie malnutrition BMI 15.1 Nutrition consult Past tobacco abuse Disposition: plan to DC home w/ hospice Total Time Total Time Spent Total Time Spent (In Minutes): 40 Discharge Plan Discharge Items Patient Disposition: Hospice - Home Reason For Visit: HYPOATREMIA, SOB Discharge Diagnosis: Metastatic lung adenocarcinoma with brain metastases Hyponatremia Leukocytosis Activity: Per Instructions section Non-emergency contact: Primary Care Provider Call non-emergency contact if: you have any medication questions and your symptoms worsen Follow-up/Referrals: Epifanio Torres MD [Primary Care Provider] - (Date & Time 09/30/2021 4:20 PM Provider Epifanio Dolan MD Department [facility] ) Diet: Regular Fluids: 2000ml (8 cups) Addtl Attending Provider Instructions: Propranolol dose was decreased to 80 instead of 120 due to your slower heart rate. Discuss with your hospice nurse, which medications are still helpful and which are not. You also have an appointment with your primary care doctor scheduled for September 30, and can discuss this as well. Pending Studies at Discharge: No Stand-Alone Forms: My [facility] Medications and DC Order Prescriptions: New propranolol 80 mg Capsule,Extended Release 24 Hr 80 mg PO HS Qty: 30 RF: 0 lorazepam 0.5 mg Tablet 0.5 mg PO BID PRN (Reason: anxiety) Qty: 5 RF: 0 oxycodone 5 mg Tablet 5 mg PO Q4H PRN (Reason: pain) Qty: 5 RF: 0 Continued aspirin-dipyridamole 25-200 mg Capsule, Er Multiphase 12 Hr 1 cap PO BID RF: 0 potassium chloride 10 mEq Capsule, Extended Release 10 meq PO DAILY RF: 0 atorvastatin [Lipitor] 20 mg Tablet 20 mg PO HS RF: 0 cetirizine [Zyrtec] 10 mg Tablet 10 mg PO HS PRN (Reason: Allergy Symptoms) RF: 0 amlodipine [Norvasc] 5 mg Tablet 5 mg PO DAILY RF: 0 famotidine 20 mg tablet 20 mg PO QAM RF: 0 magnesium oxide 250 mg magnesium Tablet 250 mg PO HS RF: 0 Calcium 600 + D(3) 600 mg calcium- 200 unit Capsule 1 cap PO BID RF: 0 dexamethasone 4 mg tablet 4 mg PO Q6H Qty: 60 RF: 0 rizatriptan 10 mg tablet 10 mg PO UD PRN (Reason: Migraine Headache) RF: 0 Discontinued propranolol [Inderal LA] 120 mg Capsule,Extended Release 24 Hr 120 mg PO HS RF: 0 Discharge Orders: Discharge Order (Routine); Ordered 09/25/21 Ordered By: Hamlet Vanessa/Other Patient Handouts: A1C Admission Data Admit Date/Time: 09/21/21 03:29 Attending Provider: Hamlet Oliva Admit Provider: Conner Giraldo Primary Care Provider: Epifanio Torres Other Providers: Brisedya Tena ; Dedrick Marie ; Donya Cardoso ; Cici Hilliard ; Mikal Artis ; Suze Gresham ; [facility] ; Yaron Sweeney ; Kaden Eklins ; Conner Giraldo ; Rosmery Serrano ; Graham Palacios ; [facility]Referral Center ; [facility]Home Healthcare Other Interventions: Discharge Summary Assessment (RN) Last Done: 09/25/21 12:40
== END 2021-09-25 18:43 | disposition hospice, home (50) | DRG 640 ==
LOC: ED 23:50 → EDINP 09-21 03:29 → SUATTDRO 09-21 03:29 → 2N 09-21 04:32